=== PATIENT | female | born 1990 | race Hispanic/Latino ===

== ENCOUNTER 2017-08-05 11:03 | Emergency (ER) | payer SELFPAY ==
--- NOTE | 2017-08-05 12:43 | ER ---
Nurse's Notes [facility] Name: Marine Mitchell Age: 27 yrs Sex: Female : 1990 Arrival Date: 08/05/2017 Time: 11:07 Bed Waiting Private MD: None, None Diagnosis: Presentation: 08/05 11:17 Presenting complaint: Patient states: vomiting yesterday evening x4. epigastric and ch flank pain today. also has a sore to R upper arm for weeks, its red and open. smaller than dime sized. Transition of care: patient was not received from another setting of care. Onset of symptoms was August 04, 2017. Care prior to arrival: None. 11:17 Method Of Arrival: Ambulatory 11:17 Acuity: ADIEL 3 Triage Assessment: :18 General: Appears in no apparent distress. comfortable, Behavior is calm, cooperative, ch appropriate for age. Pain: Complains of pain in epigastric area, anterior aspect of right lateral abdomen and anterior aspect of left lateral abdomen Pain currently is 5 out of 10 on a pain scale. GI: Reports upper abdominal pain, nausea, vomiting. : No signs and/or symptoms were reported regarding the genitourinary system. 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 Flu vaccine is not up to date. - Social history:: Smoking status: Patient/guardian denies using tobacco, Patient/guardian denies using alcohol, street drugs. Vital Signs: 11:18 BP 123 / 81; Pulse 91; Resp 16; Temp 99.4(O); Pulse Ox 99% on R/A; Weight 121.56 kg; Height 5 ft. 1 in. (154.94 cm); Pain 5/10; 11:18 Body Mass Index 50.64 (121.56 kg, 154.94 cm) ED Course: 11:07 Patient arrived in ED. mr 11:08 None, None is Private Physician. mr 11:17 Triage completed. 11:18 Arm band placed on left wrist. Patient placed in waiting room. 11:56 [facility]C [facility] sn 11:56 Richard Archer MD is Attending Physician. snw 12:03 Radiology exam delayed due to lab results not completed at this time. (HCG). lc3 Administered Medications: No medications were administered Outcome: 12:42 Patient left the ED. kt1 Signatures: Lashaun Lyle, ARTEM RN Mayra Lucas FNP-C AGRONOMY SUPERVISOR-Beverly Marina mr Anuja Grant, RN RN kt1 Rajesh Palacios lc3
[2017-08-05 12:57] VITALS: BP 123/81; TEMP 99.4; O2SAT 99
== END 2017-08-05 12:42 | disposition left against medical advice (07) ==
LOC: ER 11:03
DX: Z02.9 Encounter for administrative examinations, unspecified (principal)
CPT/HCPCS: 99281

== ENCOUNTER 2017-08-29 09:53 | Emergency (ER) | payer SELFPAY ==
[2017-08-29 10:53] LABS: Bicarbonate 22 mEq/L (21-31); Glucose Level 106 mg/dL (65-120); Lipase 23 U/L (22-51); Potassium 3.6 mEq/L (3.6-5.0); Sodium Level 133 mEq/L (135-145)
[2017-08-29 10:59] LABS: ALT/SGPT 16 IU/L (10-60); AST/SGOT 20 IU/L (10-42); Albumin 3.7 g/dL (3.2-5.5); Alkaline Phosphatase 84 IU/L (42-121); Amylase Level 43 U/L (28-100); BUN Blood Urea Nitrogen 12 mg/dL (6-20); Bilirubin Direct 0.1 mg/dL (0-0.2); Bilirubin Total 0.5 mg/dL (0.3-1.2); Glomerular Filtration Rate > 90 mL/min (=/>90); Protein, Total 7.8 g/dL (6.0-8.3)
[2017-08-29 11:15] LABS: Absolute Lymphocytes (CBC) 2.4 K/uL (0.7-4.9); Absolute Monocytes 0.8 K/uL (0.1-1.3); Absolute Neutrophil 11.3 K/uL (1.8-8.0); Basophils % 0.5 % (0-1.3); Eosinophils % 0.3 % (0-4.4); Hematocrit 38.7 % (36.0-45.0); Lymphocytes % 16.3 % (15.3-44.8); MCH 23.1 pg (27.0-35.0); MCV 74.1 fL (80-100); Monocytes % 5.5 % (3.3-12.3); RBC Red Blood Cell Count 5.22 M/uL (3.86-4.86)
[2017-08-29 11:19] LABS: Urine Blood NEGATIVE (NEG); Urine Glucose NEGATIVE (NEG); Urine Protein 1+ (NEG); Urine Specific Gravity 1.025 (1.005-1.030)
--- NOTE | 2017-08-29 12:00 | RAD REPORT ---
EXAM DESCRIPTION: CT - Abdomen Pelvis W Contrast - 08/29/2017 11:41 am CLINICAL HISTORY: Abdominal pain COMPARISON: 2014 TECHNIQUE: Computed axial tomography of the abdomen pelvis was obtained. 100 cc Isovue-300 was admin istered intravenously. Oral contrast was not requested which limits evaluation of bowel. All CT scans are performed using dose optimization technique as appropriate and may include automated exposure control or mA/KV adjustment according to patient size. FINDINGS: The liver has a diminished attenuation consistent with fatty infiltration. Splenic granulomata are noted. Pancreas, adrenal and left kidney appear unremarkable. The right kidney is extremely atrophic. There is no evidence of diverticulitis. The appendix is normal. An adnexal mass is not noted. A 10 millimeter right inguinal lymph node is present. It has diminished in size when compared to the prior exam IMPRESSION: Fatty infiltration liver Extremely atrophic right kidney
--- NOTE | 2017-08-29 12:44 | EDPHYS ---
Physician Documentation [facility] Name: Marine Mitchell Age: 27 yrs Sex: Female : 1990 Arrival Date: 08/29/2017 Time: 09:54 Bed 24 Private MD: ED Physician Bruno Guardado HPI: 08/29 10:03 This 27 yrs old Female presents to ER via Ambulatory with complaints of kb Abdominal Pain. 10:03 The patient presents with abdominal pain in the epigastric area. Onset: The kb symptoms/episode began/occurred this morning. The symptoms do not radiate. Associated signs and symptoms: none. The symptoms are described as achy. Modifying factors: The symptoms are alleviated by nothing, the symptoms are aggravated by nothing. Severity of pain: At its worst the pain was mild in the emergency department the pain is unchanged. The patient has not experienced similar symptoms in the past. The patient has not recently seen a physician. 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 - Social history:: Smoking status: Patient/guardian denies using tobacco. ROS: 10:01 Constitutional: Negative for fever, chills, and weight loss, Cardiovascular: Negative kb for chest pain, palpitations, and edema, Respiratory: Negative for shortness of breath, cough, wheezing, and pleuritic chest pain, : Negative for injury, bleeding, discharge, and swelling, MS/Extremity: Negative for injury and deformity, Skin: Negative for injury, rash, and discoloration, Neuro: Negative for headache, weakness, numbness, tingling, and seizure. 10:01 Abdomen/GI: Positive for abdominal pain, Negative for nausea, vomiting, and diarrhea, constipation, abdominal cramps, abdominal distension, anorexia. Exam: 10:01 Constitutional: This is a well developed, well nourished patient who is awake, alert, kb and in no acute distress. Head/Face: Normocephalic, atraumatic. Chest/axilla: Normal chest wall appearance and motion. Nontender with no deformity. No lesions are appreciated. Cardiovascular: Regular rate and rhythm with a normal S1 and S2. No gallops, murmurs, or rubs. Normal PMI, no JVD. No pulse deficits. Respiratory: Lungs have equal breath sounds bilaterally, clear to auscultation and percussion. No rales, rhonchi or wheezes noted. No increased work of breathing, no retractions or nasal flaring. Back: No spinal tenderness. No costovertebral tenderness. Full range of motion. Skin: Warm, dry with normal turgor. Normal color with no rashes, no lesions, and no evidence of cellulitis. MS/ Extremity: Pulses equal, no cyanosis. Neurovascular intact. Full, normal range of motion. Neuro: Awake and alert, GCS 15, oriented to person, place, time, and situation. Cranial nerves II-XII grossly intact. Motor strength 5/5 in all extremities. Sensory grossly intact. Cerebellar exam normal. Normal gait. 10:01 Abdomen/GI: Inspection: obese Bowel sounds: normal, in all quadrants, Palpation: soft, mild abdominal tenderness, in the epigastric area and suprapubic area. Vital Signs: 09:57 Pulse 77; Resp 19; Temp 96.9(TE); Pulse Ox 99% on R/A; Weight 120.2 kg; Height 5 ft. 1 la1 in. (154.94 cm); 09:58 BP 130 / 79; la1 10:45 BP 128 / 70; Pulse 80; Resp 18; Pulse Ox 99% on R/A; aj1 11:55 BP 122 / 85; Pulse 68; Resp 18; Pulse Ox 99% on R/A; aj1 12:55 BP 128 / 88; Pulse 72; Resp 18; Pulse Ox 99% on R/A; aj1 09:57 Body Mass Index 50.07 (120.20 kg, 154.94 cm) la1 MDM: 09:59 Patient medically screened. kb 10:01 Data reviewed: vital signs, nurses notes. Data interpreted: Pulse oximetry: on room air kb is 99 %. Interpretation: normal. 12:01 Counseling: I had a detailed discussion with the patient and/or guardian regarding: the kb historical points, exam findings, and any diagnostic results supporting the discharge/admit diagnosis, lab results, radiology results, the need for outpatient follow up, a family practitioner, to return to the emergency department if symptoms worsen or persist or if there are any questions or concerns that arise at home. 08/29 10:00 Order name: Lipase; Complete Time: 11:01 kb 08/29 10:00 Order name: Amylase, Serum; Complete Time: 11:01 kb 08/29 10:00 Order name: Basic Metabolic Panel; Complete Time: 11:01 kb 08/29 10:00 Order name: CBC with Diff; Complete Time: 11:24 kb 08/29 10:00 Order name: Hepatic Function; Complete Time: 11:01 kb 08/29 10:41 Order name: Urine Dipstick--Ancillary (enter results); Complete Time: 11:20 ag 08/29 10:00 Order name: Urine Test (obtain specimen); Complete Time: 10:32 kb 08/29 10:00 Order name: IV Saline Lock; Complete Time: 10:32 kb 08/29 10:00 Order name: Labs collected and sent; Complete Time: 10:32 kb 08/29 10:00 Order name: Urine Dipstick-Ancillary (obtain specimen); Complete Time: 10:32 kb 08/29 10:41 Order name: Urine --Ancillary (enter results); Complete Time: 11:20 ag 08/29 10:58 Order name: Labs - recollect needed; Complete Time: 11:05 ag 08/29 11:24 Order name: CT Abd/Pelvis - W/Contrast; Complete Time: 12:01 kb 08/29 11:24 Order name: Urine Microscopic Only kb Administered Medications: No medications were administered Disposition: 15:48 Co-signature as Attending Physician, Bruno Guardado MD I agree with the assessment and perla plan of care. Disposition: 08/29/17 12:43 Discharged to Home. Impression: Generalized abdominal pain. - Condition is Stable. - Discharge Instructions: Abdominal Pain, Adult, [id number]. - Medication Reconciliation Form, Thank You Letter, Antibiotic Education, Prescription Opioid Use form. - Follow up: Emergency Department; When: As needed; Reason: Worsening of condition. Follow up: Private Physician; When: 2 - 3 days; Reason: Recheck today's complaints, Continuance of care, Re-evaluation by your physician. Signatures: Dispatcher [employer] EDRona Singh, LAURA-C LAURA-Libra Vallejo RN RN Bruno Smiley MD MD cha Attema, Lee RN RN la1 Kumar, Bella ag
--- NOTE | 2017-08-29 12:44 | ER ---
Nurse's Notes [facility] Name: Marine Mitchell Age: 27 yrs Sex: Female : 1990 Arrival Date: 08/29/2017 Time: 09:54 Bed 24 Private MD: Diagnosis: Generalized abdominal pain Presentation: 08/29 09:56 Presenting complaint: Patient states: I have been having pain abd pain since this la1 morning. Pt denies N/V/D. pt states LMP in April. Transition of care: patient was not received from another setting of care. Onset of symptoms was August 29, 2017. Care prior to arrival: None. 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 - Social history:: Smoking status: Patient/guardian denies using tobacco. Screenin:00 Abuse screen: Denies threats or abuse. Denies injuries from another. Nutritional aj1 screening: No deficits noted. Tuberculosis screening: No symptoms or risk factors identified. 10:44 Fall Risk None identified. aj1 Assessment: 10:00 General: Appears in no apparent distress. uncomfortable, Behavior is calm, cooperative, aj1 appropriate for age. Pain: Complains of pain in suprapubic area and epigastric area Pain does not radiate. Pain currently is 9 out of 10 on a pain scale. Quality of pain is described as sharp, Pain began 1 day ago. Is continuous, Alleviated by nothing. Aggravated by repositioning. Neuro: Level of Consciousness is awake, alert, obeys commands, Speech is normal, Facial symmetry appears normal. Cardiovascular: Patient's skin is warm and dry. Respiratory: Airway is patent Respiratory effort is even, unlabored, Respiratory pattern is regular, symmetrical. GI: Abdomen is non-distended, obese, Bowel sounds present X 4 quads. Abd is soft and non tender X 4 quads. Reports lower abdominal pain, upper abdominal pain, Patient currently denies diarrhea, intolerance of food, vomiting. : No signs and/or symptoms were reported regarding the genitourinary system. EENT: No signs and/or symptoms were reported regarding the EENT system. Derm: No signs and/or symptoms reported regarding the dermatologic system. Skin is pink, warm \T\ dry. normal. Musculoskeletal: No signs and/or symptoms reported regarding the musculoskeletal system. Circulation, motion, and sensation intact. 11:00 Reassessment: Patient appears in no apparent distress at this time. No changes from [facility] previously documented assessment. Patient and/or family updated on plan of care and expected duration. Pain level reassessed. Patient is alert, oriented x 3, equal unlabored respirations, skin warm/dry/pink. 12:00 Reassessment: Patient appears in no apparent distress at this time. No changes from [facility] previously documented assessment. Patient and/or family updated on plan of care and expected duration. Pain level reassessed. Patient is alert, oriented x 3, equal unlabored respirations, skin warm/dry/pink. 12:40 Reassessment: Patient states that she would like to leave now without waiting for [facility] remaining test results to return. Notified Chloé Mclaughlin NP who will discharge the patient. 12:45 Reassessment: Chloé Mclaughlin NP at bedside giving patient discharge instructions. [facility] 12:55 Reassessment: Patient appears in no apparent distress at this time. No changes from [facility] previously documented assessment. Patient and/or family updated on plan of care and expected duration. Pain level reassessed. Patient is alert, oriented x 3, equal unlabored respirations, skin warm/dry/pink. 12:58 Reassessment: Patient throws her discharge instructions into the trash prior to leaving [facility] ER. Vital Signs: 09:57 Pulse 77; Resp 19; Temp 96.9(TE); Pulse Ox 99% on R/A; Weight 120.2 kg; Height 5 ft. 1 la1 in. (154.94 cm); 09:58 BP 130 / 79; la1 10:45 BP 128 / 70; Pulse 80; Resp 18; Pulse Ox 99% on R/A; aj1 11:55 BP 122 / 85; Pulse 68; Resp 18; Pulse Ox 99% on R/A; aj1 12:55 BP 128 / 88; Pulse 72; Resp 18; Pulse Ox 99% on R/A; aj1 09:57 Body Mass Index 50.07 (120.20 kg, 154.94 cm) [facility] ED Course: 09:54 Patient arrived in ED. as 09:57 Triage completed. la1 09:58 Arm band placed on left wrist. la1 09:59 Rona Mclaughlin [facility]-C [facility] kb 09:59 Bruno Guardado MD is Attending Physician. kb 10:00 Patient has correct armband on for positive identification. Bed in low position. Call aj1 light in reach. Side rails up X 1. 10:00 No provider procedures requiring assistance completed. aj1 10:02 Libra Rubio, RN is Primary Nurse. aj1 10:20 Missed attempt(s): 22 gauge in right antecubital area. Bleeding controlled, band aid aj1 applied, catheter tip intact. 10:25 Inserted saline lock: 20 gauge in left antecubital area, using aseptic technique. Blood aj1 collected. 11:36 CT completed. Patient tolerated procedure well. Patient moved to CT via wheelchair. jg1 Patient moved back from CT. 11:41 CT Abd/Pelvis - W/Contrast In Process Unspecified. EDMS 12:56 IV discontinued, intact, bleeding controlled, No redness/swelling at site. Pressure aj1 dressing applied. Administered Medications: No medications were administered Outcome: 12:43 Discharge ordered by MD. kb 12:56 Discharged to home ambulatory. aj1 12:56 Condition: good 12:56 Discharge instructions given to patient, Instructed on discharge instructions, follow up and referral plans. Demonstrated understanding of instructions, follow-up care. 13:03 Patient left the ED. aj1 Signatures: Dispatcher [employer] EDMS Rona Mclaughlin FNP-C FNP-Libra Vallejo, RN RN aj1 Snehal Elise j Marilyn Ignacio Lee, RN RN la1
[2017-08-29 13:10] VITALS: TEMP 96.9; O2SAT 99
[2017-08-29 13:15] VITALS: BP 128/88
[2017-08-29 13:34] LABS: Urine Amorphous Sediment 2+ /HPF (NONE SEEN); Urine Bacteria 20-50 /HPF (<20); Urine Culture Reflex Order REFLEXED; Urine Mucus 1+ /HPF (NONE SEEN); Urine RBC <5 /HPF (NONE SEEN)
== END 2017-08-29 13:03 | disposition home or self-care (01) ==
LOC: ER 09:53
DX: R10.84 Generalized abdominal pain (principal)
CPT/HCPCS: 36415; 74177; 80048; 80076; 81003; 81015; 81025; 82150; 83690; 85025; 87086; 87088; 99284; Q9967

== ENCOUNTER 2018-03-24 11:38 | Emergency (ER) | payer SELFPAY ==
--- NOTE | 2018-03-24 13:21 | ER ---
Nurse's Notes [facility] Name: Marine Mitchell Age: 27 yrs Sex: Female : 1990 Arrival Date: 03/24/2018 Time: 11:40 Bed 20 Private MD: Diagnosis: Hordeolum internum right upper eyelid Presentation: 03/24 11:50 Presenting complaint: Patient states: Painful bumb to right upper eyelid since jl7 Friday. Transition of care: patient was not received from another setting of care. Onset of symptoms was March 21, 2018. Risk Assessment: Do you want to hurt yourself or someone else? Patient reports no desire to harm self or others. Initial Sepsis Screen: Does the patient meet any 2 criteria? No. Patient's initial sepsis screen is negative. Does the patient have a suspected source of infection? No. Patient's initial sepsis screen is negative. Care prior to arrival: None. 11:50 Method Of Arrival: Ambulatory [facility] 11:50 Acuity: ADIEL 4 jl7 Triage Assessment: 11:51 General: Appears in no apparent distress. uncomfortable, Behavior is calm, cooperative, jl7 appropriate for age. Pain: Complains of pain in right upper eyelid Pain currently is 10 out of 10 on a pain scale. 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 - Social history:: Smoking status: Patient uses tobacco products, denies chronic smoking, but will smoke occasionally. - Ebola Screening: : No symptoms or risks identified at this time. Screenin:20 Abuse screen: Denies threats or abuse. Denies injuries from another. Nutritional sg screening: No deficits noted. Tuberculosis screening: No symptoms or risk factors identified. Never had TB. Fall Risk None identified. Assessment: 13:10 General: Appears in no apparent distress. comfortable, well groomed, well developed, sg well nourished, Behavior is calm, cooperative, appropriate for age. Pain: Complains of pain in right upper eyelid Quality of pain is described as "scratching". Neuro: Level of Consciousness is awake, alert, obeys commands, Oriented to person, place, time, Radar Tester are equal bilaterally Moves all extremities. Full function Speech is normal, Facial symmetry appears normal. Cardiovascular: Capillary refill is brisk in bilateral fingers Patient's skin is warm and dry. Respiratory: Airway is patent Respiratory effort is even, unlabored, Respiratory pattern is regular, symmetrical, Breath sounds are clear. GI: Abdomen is flat, non-distended. : No deficits noted. EENT: No deficits noted. Derm: Skin is pink, warm \\T\\ dry. Musculoskeletal: No deficits noted. Vital Signs: 11:51 BP 119 / 79; Pulse 87; Resp 16; Temp 98.9; Pulse Ox 100% ; Weight 120.2 kg; Height 5 jl7 ft. 1 in. (154.94 cm); Pain 10/10; 11:51 Body Mass Index 50.07 (120.20 kg, 154.94 cm) jl7 ED Course: 11:40 Patient arrived in ED. as 11:51 Triage completed. jl7 11:51 Arm band placed on right wrist. Patient placed in waiting room, Patient notified of jl7 wait time. 12:55 Bruno White PA is PHCP. cp 12:55 Bruno Guardado MD is Attending Physician. cp 13:10 Patient has correct armband on for positive identification. Bed in low position. Pulse sg ox on. NIBP on. 13:15 No provider procedures requiring assistance completed. Patient did not have IV access sg during this emergency room visit. 13:20 Jc Win MD is Referral Physician. cp 13:28 Brown Junior, RN is Primary Nurse. sg Administered Medications: No medications were administered Outcome: 13:21 Discharge ordered by . cp 13:25 Discharged to home ambulatory, with family. sg 13:25 Condition: stable 13:25 Discharge instructions given to patient, Instructed on discharge instructions, follow up and referral plans. medication usage, safety practices, Demonstrated understanding of instructions, follow-up care, medications, Prescriptions given X 1. 13:29 Patient left the ED. sg Signatures: Brown Junior, RN RN Marilyn Anthony as Bruon White PA PA Karthikeyan Navarro RN RN jl7
--- NOTE | 2018-03-24 13:22 | EDPHYS ---
Physician Documentation [facility] Name: Marine Mitchell Age: 27 yrs Sex: Female : 1990 Arrival Date: 03/24/2018 Time: 11:40 Bed 20 Private MD: ED Physician Bruno Guardado HPI: 03/24 13:15 This 27 yrs old Female presents to ER via Ambulatory with complaints of Eye cp Problem. 13:15 The patient is experiencing swelling, right upper eyelid. Onset: The symptoms/episode cp began/occurred 1 week(s) ago. Duration: the symptoms are continuous. 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 - Social history:: Smoking status: Patient uses tobacco products, denies chronic smoking, but will smoke occasionally. - Ebola Screening: : No symptoms or risks identified at this time. ROS: 13:18 Constitutional: Negative for body aches, chills, fever, poor PO intake. cp 13:18 ENT: Negative for injury, pain, and discharge. cp 13:18 Eyes: Positive for swelling, of the right upper eyelid, Negative for discharge, redness. 13:18 Cardiovascular: Negative for chest pain. 13:18 Respiratory: Negative for cough, shortness of breath, wheezing. 13:18 Abdomen/GI: Negative for abdominal pain, vomiting, diarrhea, constipation. 13:18 Skin: Negative for cellulitis, rash. 13:18 All other systems are negative. Exam: 13:20 Constitutional: The patient appears in no acute distress, alert, awake, well developed, cp well nourished, obese. 13:20 Head/Face: Normocephalic, atraumatic. cp 13:20 Eyes: Pupils: equal, round, and reactive to light and accomodation, Extraocular movements: intact throughout, Sclera: no appreciated abnormality, Lids and lashes: stye, inner right upper eyelid. 13:20 ENT: External ear(s): are unremarkable, Ear canal(s): are normal, clear, TM's: dullness, bilaterally, Nose: is normal, Mouth: is normal, Posterior pharynx: is normal, airway is patent, no erythema, no exudate. 13:20 Neck: ROM/movement: is normal, is supple, without pain, no range of motions limitations, no nuchal rigidity. 13:20 Chest/axilla: Inspection: normal, Palpation: is normal, no crepitus, no tenderness. 13:20 Cardiovascular: Rate: normal, Rhythm: regular. 13:20 Respiratory: the patient does not display signs of respiratory distress, Respirations: normal, no use of accessory muscles, no retractions, no splinting, no tachypnea. 13:20 Skin: cellulitis, is not appreciated, no rash present. Vital Signs: 11:51 BP 119 / 79; Pulse 87; Resp 16; Temp 98.9; Pulse Ox 100% ; Weight 120.2 kg; Height 5 jl7 ft. 1 in. (154.94 cm); Pain 10/10; 11:51 Body Mass Index 50.07 (120.20 kg, 154.94 cm) jl7 MDM: 12:55 Patient medically screened. cp 13:20 Data reviewed: vital signs, nurses notes, and as a result, I will discharge patient. cp Administered Medications: No medications were administered Disposition: 03/25 08:55 Co-signature as Attending Physician, Bruno Guardado MD I agree with the assessment and [facility] plan of care. Disposition: 03/24/18 13:21 Discharged to Home. Impression: Hordeolum internum right upper eyelid. - Condition is Stable. - Discharge Instructions: Stye. - Prescriptions for Keflex 500 mg Oral Capsule - take 1 capsule by ORAL route every 6 hours for 10 days; 40 capsule. - Work release form, Medication Reconciliation Form, Thank You Letter, Antibiotic Education, Prescription Opioid Use form. - Follow up: Jc Win MD; When: 1 week; Reason: no improvement. - Problem is new. - Symptoms are unchanged. Signatures: Brown Junior RN RN sg Anderson, Corey, MD MD cha Page, Corey, PA PA cp Leal, Jahala, RN RN jl7 Corrections: (The following items were deleted from the chart) 03/24 13:29 13:21 03/24/2018 13:21 Discharged to Home. Impression: Hordeolum internum right upper sg eyelid. Condition is Stable. Forms are Medication Reconciliation Form, Thank You Letter, Antibiotic Education, Prescription Opioid Use. Follow up: Jc Win; When: 1 week; Reason: no improvement. Problem is new. Symptoms are unchanged. cp
[2018-03-24 13:57] VITALS: BP 119/79; TEMP 98.9; O2SAT 100
== END 2018-03-24 13:29 | disposition home or self-care (01) ==
LOC: ER 11:38
DX: H00.021 Hordeolum internum right upper eyelid (principal)
CPT/HCPCS: 99283

== ENCOUNTER 2018-04-28 19:06 | Emergency (ER) | payer SELFPAY ==
[2018-04-28] MEDS ORDERED: ACETAMINOPHEN 325 MG TABLET ONE (20:01)
[2018-04-28] MEDS ORDERED: IBUPROFEN 400 MG TAB ONE (20:01)
[2018-04-28] MEDS ORDERED: ONDANSETRON 4 MG (ODT) TAB ONE (20:02)
--- NOTE | 2018-04-28 20:31 | ER ---
Nurse's Notes [facility] Name: Marine Mitchell Age: 27 yrs Sex: Female : 1990 Arrival Date: 04/28/2018 Time: 19:07 Bed 20 Private MD: Diagnosis: Head injury;Scalp contusion Presentation: 04/28 19:21 Presenting complaint: Patient states: ice door fell hitting pt in left side of head. pt ak1 denies LOC, denies N/V. Transition of care: patient was not received from another setting of care. Mechanism of Injury: resulted from ice door fell hitting pt;. Risk considerations:. Onset of symptoms was April 28, 2018. Risk Assessment: Do you want to hurt yourself or someone else? Patient reports no desire to harm self or others. Initial Sepsis Screen: Does the patient meet any 2 criteria? No. Patient's initial sepsis screen is negative. Does the patient have a suspected source of infection? No. Patient's initial sepsis screen is negative. Care prior to arrival: None. 19:21 Method Of Arrival: Ambulatory ak1 19:21 Acuity: ADIEL 4 ak1 Triage Assessment: 19:23 General: Appears in no apparent distress. Neuro: Level of Consciousness is awake, ak1 alert, obeys commands, Oriented to person, place, time, situation, Foreign Correspondent are equal bilaterally Moves all extremities. Gait is steady, Speech is normal, Facial symmetry appears normal. 19:58 Neuro: Reports headache. 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 - Social history:: Smoking status: unknown. - Ebola Screening: : No symptoms or risks identified at this time. Screenin:55 Abuse screen: Denies threats or abuse. Denies injuries from another. Nutritional ls4 screening: No deficits noted. Tuberculosis screening: No symptoms or risk factors identified. Fall Risk None identified. Assessment: 19:59 General: Appears in no apparent distress. Behavior is calm, cooperative, Smells of ls4 Reports. 19:59 Pain: Complains of pain in top of head Pain currently is 5 out of 10 on a pain scale. ls4 Quality of pain is described as aching. Neuro: No deficits noted. Cardiovascular: No deficits noted. Respiratory: No deficits noted. GI: No deficits noted. : No deficits noted. EENT: No deficits noted. Musculoskeletal: No deficits noted. Injury Description: NO INJURY VISUALIZED. PT STATES ICE DOOR CLOSED ON HER HEAD. Vital Signs: 19:23 BP 129 / 93; Pulse 87; Resp 18; Temp 98; Pulse Ox 98% on R/A; Weight 106.59 kg (R); ak1 Height 5 ft. 1 in. (154.94 cm) (R); Pain 10/10; 20:52 BP 122 / 78; Pulse 86; Resp 16; Temp 98(O); Pulse Ox 98% on R/A; Pain 0/10; ls4 19:23 Body Mass Index 44.40 (106.59 kg, 154.94 cm) ak1 Suzy Coma Score: 19:21 Eye Response: spontaneous(4). Verbal Response: oriented(5). Motor Response: obeys ak1 commands(6). Total: 15. 20:18 Eye Response: spontaneous(4). Verbal Response: oriented(5). Motor Response: obeys wa commands(6). Total: 15. ED Course: 19:07 Patient arrived in ED. ds1 19:22 Triage completed. ak1 19:23 Arm band placed on Patient placed in an exam room, on a stretcher, Patient notified of ak1 wait time. 19:27 Brandan Vela MD is Attending Physician. wa 19:35 Dodie Ochoa, RN is Primary Nurse. ls4 19:58 Patient has correct armband on for positive identification. Bed in low position. Call ls4 light in reach. Side rails up X2. 20:55 No provider procedures requiring assistance completed. Patient did not have IV access ls4 during this emergency room visit. Administered Medications: 19:56 Drug: Motrin 400 mg Route: PO; ls4 20:21 Follow up: Response: No adverse reaction; Marked relief of symptoms ls4 19:56 Drug: Zofran 4 mg Route: PO; ls4 20:20 Follow up: Response: No adverse reaction; Marked relief of symptoms ls4 19:57 Drug: Tylenol 1000 mg Route: PO; ls4 20:21 Follow up: Response: No adverse reaction; Marked relief of symptoms ls4 Outcome: 20:31 Discharge ordered by . polo 20:56 Discharged to home ambulatory, with friend. ls4 20:56 Condition: good 20:56 Discharge instructions given to patient, Instructed on discharge instructions, follow up and referral plans. medication usage, Demonstrated understanding of instructions, follow-up care, medications, Prescriptions given X 1. 20:57 Patient left the ED. ls4 Signatures: Arabella Covarrubias ds1 Marine Irizarry RN RN ak1 Brandan Vela MD MD wa Stewart, Lisa, RN RN ls4
--- NOTE | 2018-04-28 20:31 | EDPHYS ---
Physician Documentation [facility] Name: Marine Mitchell Age: 27 yrs Sex: Female : 1990 Arrival Date: 04/28/2018 Time: 19:07 Bed 20 Private MD: ED Physician Brandan Vela HPI: 04/28 20:18 This 27 yrs old Female presents to ER via Ambulatory with complaints of Head wa Injury-Adult. 20:18 The patient or guardian reports injury, lid of ice machine hit her scalp at work. no wa LOC. no dizziness or vomiting. states began developing a LEWIS 2 -3 hours later and wants to get checked. no h/o of blood dyscrasias or anticoag therapy. The complaints affect the top of head. Context of injury: The problem was sustained at work, resulted from a direct blow, from lid of ice machine. Onset: The symptoms/episode began/occurred 6 hour(s) ago. Associated signs and symptoms: Loss of consciousness: This patient did not experience any loss of consciousness. Pertinent positives: headache, Pertinent negatives: dazed, vomiting. Severity of symptoms: At their worst the symptoms were moderate, in the emergency department the symptoms are unchanged. The patient has not experienced similar symptoms in the past. The patient has not recently seen a physician. 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 - Social history:: Smoking status: unknown. - Ebola Screening: : No symptoms or risks identified at this time. ROS: 20:21 Constitutional: Negative for fever, chills, and weight loss, Eyes: Negative for injury, wa pain, redness, and discharge, ENT: Negative for injury, pain, and discharge, Neck: Negative for injury, pain, and swelling, Cardiovascular: Negative for chest pain, palpitations, and edema, Respiratory: Negative for shortness of breath, cough, wheezing, and pleuritic chest pain, Abdomen/GI: Negative for abdominal pain, nausea, vomiting, diarrhea, and constipation, Back: Negative for injury and pain, : Negative for injury, bleeding, discharge, and swelling, MS/Extremity: Negative for injury and deformity, Skin: Negative for injury, rash, and discoloration. 20:21 Neuro: Positive for headache, Negative for altered mental status, dizziness, gait disturbance. 20:21 All other systems are negative. Exam: 20:21 Constitutional: This is a well developed, well nourished patient who is awake, alert, wa and in no acute distress. Eyes: Pupils equal round and reactive to light, extra-ocular motions intact. Lids and lashes normal. Conjunctiva and sclera are non-icteric and not injected. Cornea within normal limits. Periorbital areas with no swelling, redness, or edema. ENT: Nares patent. No nasal discharge, no septal abnormalities noted. Tympanic membranes are normal and external auditory canals are clear. Oropharynx with no redness, swelling, or masses, exudates, or evidence of obstruction, uvula midline. Mucous membranes moist. Neck: Trachea midline, no thyromegaly or masses palpated, and no cervical lymphadenopathy. Supple, full range of motion without nuchal rigidity, or vertebral point tenderness. No Meningismus. Chest/axilla: Normal chest wall appearance and motion. Nontender with no deformity. No lesions are appreciated. Cardiovascular: Regular rate and rhythm with a normal S1 and S2. No gallops, murmurs, or rubs. Normal PMI, no JVD. No pulse deficits. Respiratory: Lungs have equal breath sounds bilaterally, clear to auscultation and percussion. No rales, rhonchi or wheezes noted. No increased work of breathing, no retractions or nasal flaring. Abdomen/GI: Soft, non-tender, with normal bowel sounds. No distension or tympany. No guarding or rebound. No evidence of tenderness throughout. Back: No spinal tenderness. No costovertebral tenderness. Full range of motion. Skin: Warm, dry with normal turgor. Normal color with no rashes, no lesions, and no evidence of cellulitis. MS/ Extremity: Pulses equal, no cyanosis. Neurovascular intact. Full, normal range of motion. Psych: Awake, alert, with orientation to person, place and time. Behavior, mood, and affect are within normal limits. 20:21 Head/face: Noted is tenderness, that is moderate, of the top of head. 20:21 Neuro: Orientation: is normal, Mentation: is normal, Memory: is normal, Cranial nerves: grossly normal, Motor: is normal, Gait: is steady. Vital Signs: 19:23 BP 129 / 93; Pulse 87; Resp 18; Temp 98; Pulse Ox 98% on R/A; Weight 106.59 kg (R); ak1 Height 5 ft. 1 in. (154.94 cm) (R); Pain 10/10; 20:52 BP 122 / 78; Pulse 86; Resp 16; Temp 98(O); Pulse Ox 98% on R/A; Pain 0/10; ls4 19:23 Body Mass Index 44.40 (106.59 kg, 154.94 cm) ak1 [place] Coma Score: 19:21 Eye Response: spontaneous(4). Verbal Response: oriented(5). Motor Response: obeys ak1 commands(6). Total: 15. 20:18 Eye Response: spontaneous(4). Verbal Response: oriented(5). Motor Response: obeys wa commands(6). Total: 15. MDM: 19:27 Patient medically screened. wa 20:22 Differential diagnosis: head injury. no worrisome factors to warrant head CT. will pain wa control and give close f/u. Data reviewed: vital signs, nurses notes. Response to treatment: the patient's symptoms have markedly improved after treatment. Administered Medications: 19:56 Drug: Motrin 400 mg Route: PO; ls4 20:21 Follow up: Response: No adverse reaction; Marked relief of symptoms ls4 19:56 Drug: Zofran 4 mg Route: PO; ls4 20:20 Follow up: Response: No adverse reaction; Marked relief of symptoms ls4 19:57 Drug: Tylenol 1000 mg Route: PO; ls4 20:21 Follow up: Response: No adverse reaction; Marked relief of symptoms ls4 Disposition: 04/28/18 20:31 Discharged to Home. Impression: Head injury, Scalp contusion. - Condition is Stable. - Discharge Instructions: Head Injury, Adult, [id number]. - Prescriptions for Ibuprofen 600 mg Oral Tablet - take 1 tablet by ORAL route every 6 hours As needed take with food; 30 tablet. - Medication Reconciliation Form, Thank You Letter, Antibiotic Education, Prescription Opioid Use form. - Follow up: Private Physician; When: 2 - 3 days. - Problem is new. - Symptoms have improved. - Notes: see your doctor within 2-3 days if symptoms persist and do not improve Signatures: Marine Irizarry, RN RN ak1 Brandan Vela MD MD wa Dodie Ochoa, ARTEM RN ls4 Corrections: (The following items were deleted from the chart) 20:57 20:31 04/28/2018 20:31 Discharged to Home. Impression: Head injury; Scalp contusion. ls4 Condition is Stable. Forms are Medication Reconciliation Form, Thank You Letter, Antibiotic Education, Prescription Opioid Use. Follow up: Private Physician; When: 2 - 3 days. Problem is new. Symptoms have improved. wa
[2018-04-28 21:02] VITALS: TEMP 98; O2SAT 98
[2018-04-28 21:03] VITALS: BP 122/78
== END 2018-04-28 20:57 | disposition home or self-care (01) ==
LOC: ER 19:06
DX: S09.90XA Unspecified injury of head, initial encounter (principal); S00.03XA Contusion of scalp, initial encounter; W22.8XXA Striking against or struck by other objects, initial encounter; Y99.0 Civilian activity done for income or pay
CPT/HCPCS: 99283

== ENCOUNTER 2018-06-04 15:05 | Emergency (ER) | payer SELFPAY ==
--- NOTE | 2018-06-04 16:49 | EDPHYS ---
Physician Documentation [facility] Name: Marine Mitchell Age: 27 yrs Sex: Female : 1990 Arrival Date: 06/04/2018 Time: 15:08 Bed 9 Private MD: ED Physician Bruno Guardado HPI: 06/04 15:38 This 27 yrs old Female presents to ER via Ambulatory with complaints of Sore pm1 Throat. 15:38 The patient presents with sore throat. The patient describes throat pain as constant, pm1 raw, scratchy. Onset: The symptoms/episode began/occurred 3 day(s) ago. Severity of symptoms: in the emergency department the symptoms are unchanged. Modifying factors: The symptoms are alleviated by nothing, the symptoms are aggravated by foods, swallowing, Patient's oral intake status: good unaware of sick contact. Associated signs and symptoms: Pertinent positives: cough, flu-like symptoms, Pertinent negatives diarrhea, earache, fever, headache, shortness of breath, vomiting. The patient has not experienced similar symptoms in the past. The patient has not recently seen a physician. 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 - Social history:: Smoking status: unknown. - Ebola Screening: : Patient negative for fever greater than or equal to 101.5 degrees Fahrenheit, and additional compatible Ebola Virus Disease symptoms Patient denies exposure to infectious person Patient denies travel to an Ebola-affected area in the 21 days before illness onset No symptoms or risks identified at this time. ROS: 15:38 Constitutional: Negative for fever, chills, and weight loss, Eyes: Negative for injury, pm1 pain, redness, and discharge, Neck: Negative for injury, pain, and swelling, Cardiovascular: Negative for chest pain, palpitations, and edema, Abdomen/GI: Negative for abdominal pain, nausea, vomiting, diarrhea, and constipation, Back: Negative for injury and pain, : Negative for injury, bleeding, discharge, and swelling, MS/Extremity: Negative for injury and deformity, Skin: Negative for injury, rash, and discoloration. 15:38 Neuro: Negative for headache, weakness, numbness, tingling, and seizure. 15:38 ENT: Positive for sore throat, Negative for drainage from ear(s), ear pain, rhinorrhea, sinus congestion, sinus pain, difficulty swallowing, difficulty handling secretions, hoarseness. 15:38 Respiratory: Positive for cough, Negative for shortness of breath, sputum production, wheezing. Exam: 15:38 Constitutional: This is a well developed, well nourished patient who is awake, alert, pm1 and in no acute distress. Head/Face: Normocephalic, atraumatic. Eyes: Pupils equal round and reactive to light, extra-ocular motions intact. Lids and lashes normal. Conjunctiva and sclera are non-icteric and not injected. Cornea within normal limits. Periorbital areas with no swelling, redness, or edema. ENT: Nares patent. No nasal discharge, no septal abnormalities noted. Tympanic membranes are normal and external auditory canals are clear. Oropharynx with no redness, swelling, or masses, exudates, or evidence of obstruction, uvula midline. Mucous membranes moist. Neck: Trachea midline, no thyromegaly or masses palpated, and no cervical lymphadenopathy. Supple, full range of motion without nuchal rigidity, or vertebral point tenderness. No Meningismus. Chest/axilla: Normal chest wall appearance and motion. Nontender with no deformity. No lesions are appreciated. Cardiovascular: Regular rate and rhythm with a normal S1 and S2. No gallops, murmurs, or rubs. Normal PMI, no JVD. No pulse deficits. Respiratory: Lungs have equal breath sounds bilaterally, clear to auscultation and percussion. No rales, rhonchi or wheezes noted. No increased work of breathing, no retractions or nasal flaring. Abdomen/GI: Soft, non-tender, with normal bowel sounds. No distension or tympany. No guarding or rebound. No evidence of tenderness throughout. Back: No spinal tenderness. No costovertebral tenderness. Full range of motion. Skin: Warm, dry with normal turgor. Normal color with no rashes, no lesions, and no evidence of cellulitis. MS/ Extremity: Pulses equal, no cyanosis. Neurovascular intact. Full, normal range of motion. 15:38 Neuro: Orientation: is normal, Motor: is normal, Sensation: is normal, no obvious gross deficits, Gait: is steady, at a normal pace, without difficulty. Vital Signs: 15:32 Pulse 87; Resp 17; Temp 97; Pulse Ox 96% on R/A; Weight 120.2 kg; Height 5 ft. 1 in. sg (154.94 cm); Pain 7/10; 15:33 BP 144 / 80; sg 15:32 Body Mass Index 50.07 (120.20 kg, 154.94 cm) MDM: 15:35 Patient medically screened. pm1 16:48 Data reviewed: vital signs. Data interpreted: Pulse oximetry: on room air is 96 %. pm1 Interpretation: normal. Counseling: I had a detailed discussion with the patient and/or guardian regarding: the historical points, exam findings, and any diagnostic results supporting the discharge/admit diagnosis, lab results, the need for outpatient follow up, to return to the emergency department if symptoms worsen or persist or if there are any questions or concerns that arise at home. 06/04 15:38 Order name: Flu; Complete Time: 16:48 pm1 06/04 15:38 Order name: Strep; Complete Time: 16:48 pm1 06/04 16:24 Order name: Throat Culture EDMS Administered Medications: No medications were administered Disposition: 06/05 06:59 Co-signature as Attending Physician, Bruno Guardado MD I agree with the assessment and perla plan of care. Disposition: 06/04/18 16:48 Discharged to Home. Impression: Acute pharyngitis. - Condition is Stable. - Discharge Instructions: Antibiotic Resistance, Pharyngitis. - Medication Reconciliation Form, Thank You Letter, Antibiotic Education form. - Follow up: Emergency Department; When: As needed; Reason: Worsening of condition. Follow up: Private Physician; When: 2 - 3 days; Reason: Recheck today's complaints, Continuance of care, Re-evaluation by your physician. - Problem is new. - Symptoms have improved. Signatures: Dispatcher [employer] EDMS Brown Junior RN RN sg Anderson, Corey, MD MD cha Williams, Irene, RN RN iw Marinas, Patrick, WAYLON COSMETICS PRESSER pm1 Corrections: (The following items were deleted from the chart) 06/04 17:09 16:48 06/04/2018 16:48 Discharged to Home. Impression: Acute pharyngitis. Condition is iw Stable. Forms are Medication Reconciliation Form, Thank You Letter, Antibiotic Education, Prescription Opioid Use. Follow up: Emergency Department; When: As needed; Reason: Worsening of condition. Follow up: Private Physician; When: 2 - 3 days; Reason: Recheck today's complaints, Continuance of care, Re-evaluation by your physician. Problem is new. Symptoms have improved. pm1
--- NOTE | 2018-06-04 16:49 | ER ---
Nurse's Notes [facility] Name: Marine Mitchell Age: 27 yrs Sex: Female : 1990 Arrival Date: 06/04/2018 Time: 15:08 Bed 9 Private MD: Diagnosis: Acute pharyngitis Presentation: 06/04 15:11 Presenting complaint: Presenting complaint: Patient states: reports having sore throat sg for about 2-3 days, has had strep throat and painful swallowing, reports fever off and on for several days as well. 15:11 Acuity: ADIEL 4 sg 15:31 Transition of care: patient was not received from another setting of care. Onset of sg symptoms was June 04, 2018. Risk Assessment: Do you want to hurt yourself or someone else? Patient reports no desire to harm self or others. Initial Sepsis Screen: Does the patient meet any 2 criteria? No. Patient's initial sepsis screen is negative. Does the patient have a suspected source of infection? No. Patient's initial sepsis screen is negative. Care prior to arrival: None. 15:31 Method Of Arrival: Ambulatory sg Triage Assessment: 17:08 General: Appears in no apparent distress. Behavior is calm, cooperative. 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 - Social history:: Smoking status: unknown. - Ebola Screening: : Patient negative for fever greater than or equal to 101.5 degrees Fahrenheit, and additional compatible Ebola Virus Disease symptoms Patient denies exposure to infectious person Patient denies travel to an Ebola-affected area in the 21 days before illness onset No symptoms or risks identified at this time. Screenin:08 Abuse screen: Denies threats or abuse. Denies injuries from another. Nutritional iw screening: No deficits noted. Tuberculosis screening: No symptoms or risk factors identified. Fall Risk None identified. Assessment: 18:30 General: Appears in no apparent distress. comfortable, Behavior is calm, cooperative. iw Pain: Complains of pain in throat. Neuro: Level of Consciousness is awake, alert, obeys commands, Moves all extremities. Full function. Respiratory: Airway is patent Respiratory effort is even, unlabored, Breath sounds are clear bilaterally. EENT: Throat is reddened bilaterally with gag reflex present. Musculoskeletal: Range of motion: intact in all extremities. Vital Signs: 15:32 Pulse 87; Resp 17; Temp 97; Pulse Ox 96% on R/A; Weight 120.2 kg; Height 5 ft. 1 in. sg (154.94 cm); Pain 7/10; 15:33 BP 144 / 80; sg 15:32 Body Mass Index 50.07 (120.20 kg, 154.94 cm) ED Course: 15:08 Patient arrived in ED. mr 15:11 Triage completed. sg 15:11 Arm band placed on. sg 15:33 Froilan Jaime NP is PHCP. pm1 15:33 Bruno Guardado MD is Attending Physician. pm1 15:47 Buffy Moyer, RN is Primary Nurse. iw 16:00 Flu and/or RSV swab sent to lab. Strep swab sent to lab. jp3 16:10 Strep Sent. jp3 16:10 Flu Sent. jp3 17:08 No provider procedures requiring assistance completed. Patient did not have IV access iw during this emergency room visit. 18:00 Patient has correct armband on for positive identification. iw Administered Medications: No medications were administered Outcome: 16:48 Discharge ordered by MD. pm1 17:08 Discharged to home ambulatory. iw 17:08 Condition: good 17:08 Discharge instructions given to patient, Instructed on discharge instructions, follow up and referral plans. Demonstrated understanding of instructions, follow-up care. 17:09 Patient left the ED. iw Signatures: Brown Junior RN RN MotleyMyrna mr Buffy Moyer RN RN Froilan Jaime NP LINE PATROLMAN pm1 Clarence Michael jp3 Corrections: (The following items were deleted from the chart) 15:32 15:11 Presenting complaint: [facility] er
[2018-06-04 17:24] VITALS: TEMP 97; O2SAT 96
[2018-06-04 17:25] VITALS: BP 144/80
== END 2018-06-04 17:09 | disposition home or self-care (01) ==
LOC: ER 15:05
DX: J02.9 Acute pharyngitis, unspecified (principal)
CPT/HCPCS: 87070; 87081; 87804; 99283

== ENCOUNTER 2018-09-27 12:16 | Emergency (ER) | payer SELFPAY ==
--- NOTE | 2018-09-27 13:28 | EDPHYS ---
Physician Documentation [facility] Name: Marine Mitchell Age: 28 yrs Sex: Female : 1990 Arrival Date: 09/27/2018 Time: 12:19 Bed 25 Private MD: ED Physician Bruno Guardado HPI: 09/27 13:11 This 28 yrs old Female presents to ER via Ambulatory with complaints of Eye jmm Injury, Rash. 13:11 The patient is experiencing swelling. Onset: The symptoms/episode began/occurred jmm gradually, yesterday. Associated signs and symptoms: Pertinent negatives: fever, headache. This is a 28 year old female with a history of epilepsy that presents to the ED with complaints of left eyelid swelling and rash to her left arm and left lower leg. Patient denies fever. Patient states she went for a walk outside yesterday. Denies known injury. . 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 - Social history:: Smoking status: Patient/guardian denies using tobacco. - Ebola Screening: : Patient denies travel to an Ebola-affected area in the 21 days before illness onset. ROS: 13:11 Constitutional: Negative for fever, chills, and weight loss. jmm 13:11 Eyes: Positive for swelling. 13:11 Skin: Positive for rash. 13:11 All other systems are negative. Exam: 13:11 Constitutional: This is a well developed, well nourished patient who is awake, alert, jmm and in no acute distress. 13:11 Head/Face: atraumatic. Eyes: EOMI, no conjunctival erythema appreciated ENT: Moist Mucus Membranes Neck: Trachea midline, Supple Chest/axilla: Normal chest wall appearance and motion. Cardiovascular: Regular rate and rhythm. No edema appreciated Respiratory: Normal respirations, no respiratory distress appreciated Abdomen/GI: Non distended, soft 13:11 Neuro: Awake and alert, normal gait Psych: Behavior is normal, Mood is normal, Patient is cooperative and pleasant 13:11 Eyes: Lids and lashes: stye, on the left lid. 13:11 Skin: small erythematous lesions noted to the left forearm and left lower leg which appear consistent with insect bites. no surrounding erythema or induration appreciated. Vital Signs: 12:38 BP 116 / 83; Pulse 61; Resp 18; Temp 98.0; Pulse Ox 98% on R/A; Height 5 ft. 1 in. aj1 (154.94 cm) (R); 13:35 BP 111 / 64; Pulse 60; Resp 16; Pulse Ox 100% on R/A; ae3 12:38 Patient states that she does not know how much she weighs aj1 MDM: 13:11 Patient medically screened. perla 13:25 Data reviewed: vital signs, nurses notes. Counseling: I had a detailed discussion with sharonda the patient and/or guardian regarding: the historical points, exam findings, and any diagnostic results supporting the discharge/admit diagnosis, the need for outpatient follow up, to return to the emergency department if symptoms worsen or persist or if there are any questions or concerns that arise at home. ED course: Patient is alert and non toxic in appearance in the ED. PE exam findings consistent with hordeolum and insect bites. Patient given wound infection return precautions. Patient otherwise advised to follow up with pcp for reevaluation. Patient understood and agrees with the plan of care. . Administered Medications: No medications were administered Disposition: 09/28 06:47 Co-signature as Attending Physician, Bruno Guardado MD I agree with the assessment and [facility] plan of care. Disposition: 09/27/18 13:27 Discharged to Home. Impression: Insect Bite, Hordeolum. - Condition is Stable. - Discharge Instructions: Insect Bite, Stye. - Prescriptions for Elimite 5 % Topical Cream - apply 1 application by TOPICAL route one time Wash after 12 hours.; 60 gram. Erythromycin 5 mg/gram (0.5 %) Ophthalmic Ointment - apply 1 centimeter by OPHTHALMIC route 2-3 times daily for 7 days; 1 tube. - Medication Reconciliation Form, Thank You Letter, Antibiotic Education, Prescription Opioid Use, Work release form form. - Follow up: Private Physician; When: 2 - 3 days; Reason: Recheck today's complaints, Continuance of care, Re-evaluation by your physician. Signatures: Libra Rubio RN RN Bruno Smiley MD MD cha Mickail, Joel, PA PA jmm Elliot, Andie ae3 Corrections: (The following items were deleted from the chart) 09/27 13:48 13:27 09/27/2018 13:27 Discharged to Home. Impression: Insect Bite; Hordeolum. ae3 Condition is Stable. Forms are Medication Reconciliation Form, Thank You Letter, Antibiotic Education, Prescription Opioid Use. Follow up: Private Physician; When: 2 - 3 days; Reason: Recheck today's complaints, Continuance of care, Re-evaluation by your physician. sharonda
--- NOTE | 2018-09-27 13:28 | ER ---
Nurse's Notes [facility] Name: Marine Mitchell Age: 28 yrs Sex: Female : 1990 Arrival Date: 09/27/2018 Time: 12:19 Bed 25 Private MD: Diagnosis: Insect Bite;Hordeolum Presentation: 09/27 12:36 Presenting complaint: Patient states: swelling to left eyelid that started yesterday. aj1 Patient reports that today she noticed some red bumps on her arms and legs. Reports that the red spots are itchy. Transition of care: patient was not received from another setting of care. 12:36 Method Of Arrival: Ambulatory aj1 12:37 Onset of symptoms was September 26, 2018. Risk Assessment: Do you want to hurt yourself or aj1 someone else? Patient reports no desire to harm self or others. Initial Sepsis Screen: Does the patient meet any 2 criteria? No. Patient's initial sepsis screen is negative. Does the patient have a suspected source of infection? No. Patient's initial sepsis screen is negative. Care prior to arrival: None. 12:37 Acuity: ADIEL 4 aj1 Triage Assessment: 12:38 General: Appears in no apparent distress. comfortable, Behavior is calm. Pain: aj1 Complains of pain in left eye Pain currently is 4 out of 10 on a pain scale. Neuro: Level of Consciousness is awake, alert, obeys commands. Cardiovascular: Patient's skin is warm and dry. Respiratory: Airway is patent Respiratory effort is even, unlabored, Respiratory pattern is regular, symmetrical. 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 - Social history:: Smoking status: Patient/guardian denies using tobacco. - Ebola Screening: : Patient denies travel to an Ebola-affected area in the 21 days before illness onset. Screenin:14 Abuse screen: Denies threats or abuse. Nutritional screening: No deficits noted. la1 Tuberculosis screening: No symptoms or risk factors identified. Fall Risk None identified. Assessment: 13:13 Reassessment: Patient is alert, oriented x 3, equal unlabored respirations, skin la1 warm/dry/pink. General: Appears in no apparent distress. Behavior is calm, cooperative. EENT: Lid(s) w/ stye noted left upper eyelid. Derm: Rash noted that is macular, papular, red, on left arm, right leg and left leg. Vital Signs: 12:38 BP 116 / 83; Pulse 61; Resp 18; Temp 98.0; Pulse Ox 98% on R/A; Height 5 ft. 1 in. aj1 (154.94 cm) (R); 13:35 BP 111 / 64; Pulse 60; Resp 16; Pulse Ox 100% on R/A; ae3 12:38 Patient states that she does not know how much she weighs aj1 ED Course: 12:19 Patient arrived in ED. ss4 12:37 Triage completed. aj1 12:38 Arm band placed on Patient placed in waiting room. aj1 13:08 Kelechi Jones PA is PHCP. [facility] 13:08 Bruno Guardado MD is Attending Physician. [facility] 13:13 Eddie Hanson, RN is Primary Nurse. la1 13:14 Call light in reach. la1 13:47 No provider procedures requiring assistance completed. Patient did not have IV access ae3 during this emergency room visit. Administered Medications: No medications were administered Outcome: 13:27 Discharge ordered by . [facility] 13:47 Discharged to home ambulatory. ae3 13:47 Condition: stable 13:47 Discharge instructions given to patient, Instructed on discharge instructions, follow up and referral plans. medication usage, Demonstrated understanding of instructions, Prescriptions given X 2. 13:48 Patient left the ED. ae3 Signatures: Libra Rubio, RN RN [email or web address] Kelechi Jones PA PA jmm Attema, Lee, ARTEM RN Ce Ro ss4 Jeni Dc ae3
[2018-09-27 14:01] VITALS: TEMP 98
[2018-09-27 14:03] VITALS: BP 111/64; O2SAT 100
== END 2018-09-27 13:48 | disposition home or self-care (01) ==
LOC: ER 12:16
DX: S50.862A Insect bite (nonvenomous) of left forearm, initial encounter (principal); S80.862A Insect bite (nonvenomous), left lower leg, initial encounter; H00.016 Hordeolum externum left eye, unspecified eyelid
CPT/HCPCS: 99282

== ENCOUNTER 2018-11-04 14:36 | Emergency (ER) | payer SELFPAY ==
--- NOTE | 2018-11-04 14:57 | ER ---
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 Transition of care: patient was not received from another setting of care. Onset of symptoms was November 04, 2018. Risk Assessment: Do you want to hurt yourself or someone else? Patient reports no desire to harm self or others. Initial Sepsis Screen: Does the patient meet any 2 criteria? No. Patient's initial sepsis screen is negative. Does the patient have a suspected source of infection? No. Patient's initial sepsis screen is negative. Care prior to arrival: None. 14:41 Method Of Arrival: Ambulatory 14:41 Acuity: ADIEL 4 hj Triage Assessment: 14:44 General: Appears in no apparent distress. uncomfortable, Behavior is calm, cooperative, hj appropriate for age. Pain: Complains of pain in right ear. EENT: Reports pain in right ear. 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 - Social history:: Smoking status: Patient uses tobacco products, Patient/guardian denies using alcohol. - Ebola Screening: : Patient negative for fever greater than or equal to 101.5 degrees Fahrenheit, and additional compatible Ebola Virus Disease symptoms Patient denies exposure to infectious person Patient denies travel to an Ebola-affected area in the 21 days before illness onset. Screenin:43 Abuse screen: Denies threats or abuse. Denies injuries from another. Nutritional hj screening: No deficits noted. Tuberculosis screening: No symptoms or risk factors identified. Fall Risk None identified. Vital Signs: 14:42 BP 119 / 79; Pulse 70; Resp 18; Temp 98.1(TE); Pulse Ox 100% on R/A; Weight 106.59 kg; hj Height 5 ft. 1 in. (154.94 cm); Pain 10/10; 14:42 Body Mass Index 44.40 (106.59 kg, 154.94 cm) hj ED Course: 14:41 Triage completed. hj 14:42 Patient arrived in ED. mr 14:43 Arm band placed on left wrist. hj 14:44 Patient has correct armband on for positive identification. Call light in reach. Side hj rails up X 1. 14:47 Harris Romero, RN is Primary Nurse. hj 14:49 Rona Mclaughlin FNP-C is [facility]. kb 14:49 Campbell Moon MD is Attending Physician. kb 15:12 No provider procedures requiring assistance completed. Patient did not have IV access hj during this emergency room visit. Administered Medications: No medications were administered Outcome: 14:56 Discharge ordered by MD. kb 15:12 Discharged to home ambulatory. hj 15:12 Condition: stable 15:12 Discharge instructions given to patient, Instructed on discharge instructions, follow up and referral plans. medication usage, Demonstrated understanding of instructions, follow-up care, medications, Prescriptions given X 1. 15:12 Patient left the ED. Signatures: Rona Mclaughlin FNP-C FNP-Shalom Myrna Motley mr Harris Romero RN RN hj Corrections: (The following items were deleted from the chart) 14:43 14:42 Pulse 70bpm; Resp 18bpm; Pulse Ox 100% RA; Temp 98.1F Temporal; 106.59 kg; Height hj 5 ft. 1 in.; BMI: 44.4; Pain 10/10; hj
--- NOTE | 2018-11-04 14:57 | EDPHYS ---
Physician Documentation [facility] Name: Marine Mitchell Age: 28 yrs Sex: Female : 1990 Arrival Date: 11/04/2018 Time: 14:42 Bed 12 Private MD: ED Physician Campbell Moon HPI: 11/04 14:53 This 28 yrs old Female presents to ER via Ambulatory with complaints of Ear kb Pain. 14:53 The patient presents with pain, moderate, tenderness. The complaints affect the right kb ear. Onset: The symptoms/episode began/occurred 1 week(s) ago, and became worse today. Modifying factors: The symptoms are alleviated by nothing, the symptoms are aggravated by nothing. Associated signs and symptoms: The patient has no apparent associated signs or symptoms. Severity of symptoms: At their worst the symptoms were moderate in the emergency department the symptoms are unchanged. The patient has not experienced similar symptoms in the past. The patient has not recently seen a physician. Pt reports she has had right ear pain for a week, worse today. 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 - Social history:: Smoking status: Patient uses tobacco products, Patient/guardian denies using alcohol. - Ebola Screening: : Patient negative for fever greater than or equal to 101.5 degrees Fahrenheit, and additional compatible Ebola Virus Disease symptoms Patient denies exposure to infectious person Patient denies travel to an Ebola-affected area in the 21 days before illness onset. ROS: 14:53 Constitutional: Negative for fever, chills, and weight loss, Cardiovascular: Negative kb for chest pain, palpitations, and edema, Respiratory: Negative for shortness of breath, cough, wheezing, and pleuritic chest pain, Abdomen/GI: Negative for abdominal pain, nausea, vomiting, diarrhea, and constipation, MS/Extremity: Negative for injury and deformity, Skin: Negative for injury, rash, and discoloration, Neuro: Negative for headache, weakness, numbness, tingling, and seizure. 14:53 ENT: Positive for ear pain. Exam: 14:53 Constitutional: This is a well developed, well nourished patient who is awake, alert, kb and in no acute distress. Head/Face: Normocephalic, atraumatic. Chest/axilla: Normal chest wall appearance and motion. Nontender with no deformity. No lesions are appreciated. Cardiovascular: Regular rate and rhythm with a normal S1 and S2. No gallops, murmurs, or rubs. Normal PMI, no JVD. No pulse deficits. Respiratory: Lungs have equal breath sounds bilaterally, clear to auscultation and percussion. No rales, rhonchi or wheezes noted. No increased work of breathing, no retractions or nasal flaring. Abdomen/GI: Soft, non-tender, with normal bowel sounds. No distension or tympany. No guarding or rebound. No evidence of tenderness throughout. Skin: Warm, dry with normal turgor. Normal color with no rashes, no lesions, and no evidence of cellulitis. MS/ Extremity: Pulses equal, no cyanosis. Neurovascular intact. Full, normal range of motion. Neuro: Awake and alert, GCS 15, oriented to person, place, time, and situation. Cranial nerves II-XII grossly intact. Motor strength 5/5 in all extremities. Sensory grossly intact. Cerebellar exam normal. Normal gait. 14:53 ENT: External ear(s): pain with movement, that is moderate, of the right ear lobe, Ear canal(s): swelling, that is moderate, of the right canal, TM's: are normal. Vital Signs: 14:42 BP 119 / 79; Pulse 70; Resp 18; Temp 98.1(TE); Pulse Ox 100% on R/A; Weight 106.59 kg; hj Height 5 ft. 1 in. (154.94 cm); Pain 10/10; 14:42 Body Mass Index 44.40 (106.59 kg, 154.94 cm) hj MDM: 14:49 Patient medically screened. kb 14:55 Data reviewed: vital signs, nurses notes. Data interpreted: Pulse oximetry: on room air kb is 100 %. Interpretation: normal. Counseling: I had a detailed discussion with the patient and/or guardian regarding: the historical points, exam findings, and any diagnostic results supporting the discharge/admit diagnosis, the need for outpatient follow up, a family practitioner, to return to the emergency department if symptoms worsen or persist or if there are any questions or concerns that arise at home. Administered Medications: No medications were administered Disposition: 19:00 Co-signature as Attending Physician, Campbell Moon MD Available for consultation at ps1 all times. . Disposition: 11/04/18 14:56 Discharged to Home. Impression: Other otitis externa, right ear. - Condition is Stable. - Discharge Instructions: Otitis Externa, [id number], Ear Drops, Adult, [id number]. - Prescriptions for Cortisporin- TC 3.3-3-10-0.5 mg/mL Otic Suspension - instill 4 drop by OTIC route every 6 hours; 1 bottle. - Medication Reconciliation Form, Thank You Letter, Antibiotic Education, Prescription Opioid Use form. - Follow up: Emergency Department; When: As needed; Reason: Worsening of condition. Follow up: Private Physician; When: 2 - 3 days; Reason: Recheck today's complaints, Continuance of care, Re-evaluation by your physician. Signatures: Rona Mclaughlin, LAURA-Ness SANCHEZ-Harris Villarreal, ARTEM RN Campbell Farley MD MD ps1 Corrections: (The following items were deleted from the chart) 15:12 14:56 11/04/2018 14:56 Discharged to Home. Impression: Other otitis externa, right ear. hj Condition is Stable. Forms are Medication Reconciliation Form, Thank You Letter, Antibiotic Education, Prescription Opioid Use. Follow up: Emergency Department; When: As needed; Reason: Worsening of condition. Follow up: Private Physician; When: 2 - 3 days; Reason: Recheck today's complaints, Continuance of care, Re-evaluation by your physician. kb
[2018-11-04 15:21] VITALS: BP 119/79; TEMP 98.1; O2SAT 100
== END 2018-11-04 15:12 | disposition home or self-care (01) ==
LOC: ER 14:36
DX: H60.8X1 Other otitis externa, right ear (principal); Z72.0 Tobacco use
CPT/HCPCS: 99282

== ENCOUNTER 2019-02-18 13:58 | Emergency (ER) | payer SELFPAY ==
--- NOTE | 2019-02-18 14:38 | ER ---
Nurse's Notes [facility] Name: Marine Mitchell Age: 28 yrs Sex: Female : 1990 Arrival Date: 02/18/2019 Time: 14:01 Bed 16 Private MD: None, None Diagnosis: Hordeolum (externum) (internum) of eyelid Presentation: 02/18 14:22 Presenting complaint: Patient states: pain to right eye, swelling to right eyelid, also sg has blurry vision when she wakes up, no matting or drainage, no itchiness. Transition of care: patient was not received from another setting of care. Onset of symptoms was February 15, 2019. Risk Assessment: Do you want to hurt yourself or someone else? Patient reports no desire to harm self or others. Initial Sepsis Screen: Does the patient meet any 2 criteria? No. Patient's initial sepsis screen is negative. Does the patient have a suspected source of infection? No. Patient's initial sepsis screen is negative. Care prior to arrival: None. 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 - Social history:: Smoking status: . - Ebola Screening: : Patient negative for fever greater than or equal to 101.5 degrees Fahrenheit, and additional compatible Ebola Virus Disease symptoms Patient denies exposure to infectious person Patient denies travel to an Ebola-affected area in the 21 days before illness onset No symptoms or risks identified at this time. Screenin:20 Abuse screen: Denies threats or abuse. Nutritional screening: No deficits noted. rb1 Tuberculosis screening: No symptoms or risk factors identified. Fall Risk None identified. Assessment: 14:20 General: Appears uncomfortable, Behavior is calm, cooperative. Pain: Complains of pain rb1 in right eye Pain currently is 10 out of 10 on a pain scale. Pain began this morning. Neuro: Level of Consciousness is awake, alert, obeys commands, Oriented to person, place, time, situation. Cardiovascular: Capillary refill < 3 seconds is brisk in bilateral fingers. Respiratory: Airway is patent Respiratory effort is even, unlabored, Respiratory pattern is regular, symmetrical. GI: No signs and/or symptoms were reported involving the gastrointestinal system. : No signs and/or symptoms were reported regarding the genitourinary system. EENT: Eyes are tearing on right eye swelling noted to the bottom eyelid. Derm: Skin is pink, warm \T\ dry. Vital Signs: 14:25 BP 129 / 96; Pulse 71; Resp 16; Temp 98.2; Pulse Ox 100% ; Weight 122.47 kg; Height 5 sg ft. 1 in. (154.94 cm); Pain 10/10; 14:25 Body Mass Index 51.02 (122.47 kg, 154.94 cm) ED Course: 14:01 Patient arrived in ED. ag5 14:01 None, None is Private Physician. ag5 14:20 Patient has correct armband on for positive identification. Bed in low position. Call rb1 light in reach. Side rails up X 1. Pulse ox on. NIBP on. 14:22 Soren Johnson PA is PHCP. jr8 14:22 Tremayne Dwyer MD is Attending Physician. jr8 14:25 Triage completed. sg 14:25 Arm band placed on. sg 14:36 Mylene Aly MD is Referral Physician. jr8 14:39 Sara Gonsalez, ARTEM is Primary Nurse. rb1 14:49 No provider procedures requiring assistance completed. Patient did not have IV access rb1 during this emergency room visit. Administered Medications: No medications were administered Outcome: 14:37 Discharge ordered by . jr8 14:49 Patient left the ED. rb1 14:49 Discharged to home ambulatory, with friend. rb1 14:49 Condition: stable 14:49 Discharge instructions given to patient, Instructed on discharge instructions, follow up and referral plans. medication usage, Demonstrated understanding of instructions, follow-up care, medications, Prescriptions given X 1. Signatures: Brown Junior RN RN Soren Johnson PA PA [facility] Sara Gonsalez RN RN [facility] AmariKarena ag5
--- NOTE | 2019-02-18 14:39 | EDPHYS ---
Physician Documentation [facility] Name: Marine Mitchell Age: 28 yrs Sex: Female : 1990 Arrival Date: 02/18/2019 Time: 14:01 Bed 16 Private MD: None, None ED Physician Tremayne Dwyer HPI: 02/18 15:05 This 28 yrs old Female presents to ER via Ambulatory with complaints of Eye jr8 Problem. 15:05 The patient is experiencing pain, redness, to the right eye. Onset: The jr8 symptoms/episode began/occurred acutely, today. Duration: the symptoms are continuous. Aggravated by nothing. Alleviated by blinking. Associated signs and symptoms: Pertinent positives: None. Severity of symptoms: At their worst the symptoms were mild in the emergency department the symptoms are unchanged. The patient has not experienced similar symptoms in the past. The patient has not recently seen a physician. 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 - Social history:: Smoking status: . - Ebola Screening: : Patient negative for fever greater than or equal to 101.5 degrees Fahrenheit, and additional compatible Ebola Virus Disease symptoms Patient denies exposure to infectious person Patient denies travel to an Ebola-affected area in the 21 days before illness onset No symptoms or risks identified at this time. ROS: 15:05 ENT: Negative for injury, pain, and discharge, Neck: Negative for injury, pain, and jr8 swelling, Cardiovascular: Negative for chest pain, palpitations, and edema, Respiratory: Negative for shortness of breath, cough, wheezing, and pleuritic chest pain, Abdomen/GI: Negative for abdominal pain, nausea, vomiting, diarrhea, and constipation, Back: Negative for injury and pain, MS/Extremity: Negative for injury and deformity, Skin: Negative for injury, rash, and discoloration, Neuro: Negative for headache, weakness, numbness, tingling, and seizure. 15:05 Eyes: Positive for pain, redness, swelling, of the right lower eyelid. Exam: 15:05 Visual Acuity: Visual acuity is within normal limits. jr8 15:05 Head/Face: Normocephalic, atraumatic. ENT: Nares patent. No nasal discharge, no septal abnormalities noted. Tympanic membranes are normal and external auditory canals are clear. Oropharynx with no redness, swelling, or masses, exudates, or evidence of obstruction, uvula midline. Mucous membranes moist. Cardiovascular: Regular rate and rhythm with a normal S1 and S2. No gallops, murmurs, or rubs. Normal PMI, no JVD. No pulse deficits. Respiratory: Lungs have equal breath sounds bilaterally, clear to auscultation and percussion. No rales, rhonchi or wheezes noted. No increased work of breathing, no retractions or nasal flaring. Skin: Warm, dry with normal turgor. Normal color with no rashes, no lesions, and no evidence of cellulitis. MS/ Extremity: Pulses equal, no cyanosis. Neurovascular intact. Full, normal range of motion. Neuro: Awake and alert, GCS 15, oriented to person, place, time, and situation. Cranial nerves II-XII grossly intact. Motor strength 5/5 in all extremities. Sensory grossly intact. Cerebellar exam normal. Normal gait. 15:05 Eyes: Periorbital structures: swelling, that is mild, on the right lower eyelid, Pupils: equal, round, and reactive to light and accomodation, Extraocular movements: intact throughout, Conjunctiva: normal, Corneas: are normal, Sclera: no appreciated abnormality, Anterior chamber: normal, no hyphema, on appreciated narrow angle closure, Lids and lashes: stye, seen on the right lid. Vital Signs: 14:25 BP 129 / 96; Pulse 71; Resp 16; Temp 98.2; Pulse Ox 100% ; Weight 122.47 kg; Height 5 sg ft. 1 in. (154.94 cm); Pain 10/10; 14:25 Body Mass Index 51.02 (122.47 kg, 154.94 cm) sg MDM: 14:22 Patient medically screened. jr8 14:36 Data reviewed: vital signs, nurses notes, and as a result, I will discharge patient. jr8 Data interpreted: Pulse oximetry: on room air is 100 %. Interpretation: normal. Counseling: I had a detailed discussion with the patient and/or guardian regarding: the historical points, exam findings, and any diagnostic results supporting the discharge/admit diagnosis, the need for outpatient follow up, an opthalmologist, to return to the emergency department if symptoms worsen or persist or if there are any questions or concerns that arise at home. Administered Medications: No medications were administered Disposition: 02/18/19 14:37 Discharged to Home. Impression: Hordeolum (externum) (internum) of eyelid. - Condition is Stable. - Discharge Instructions: Stye. - Prescriptions for Gentamicin 0.3 % (3 mg/gram) Ophthalmic Ointment - apply 0.5 inch by OPHTHALMIC route 2-3 times daily for 7 days; 3.5 gram. - Work release form, Medication Reconciliation Form, Thank You Letter, Antibiotic Education, Prescription Opioid Use form. - Follow up: Mylene Aly MD; When: 5 - 6 days; Reason: Recheck today's complaints, Continuance of care, Re-evaluation by your physician. - Problem is new. - Symptoms have improved. - Notes: warm compresses 5 x a day for 10-15 minutes at a time Addendum: 02/23/2019 14:38 Co-signature as Attending Physician, Tremayne Dwyer MD. g s Signatures: Brown Junior RN RN sg Soren Johnson PA PA jr8 Sara Gonsalez, ARTEM RN rb1 Tremayne Dwyer MD MD Corrections: (The following items were deleted from the chart) 02/18 14:49 14:37 02/18/2019 14:37 Discharged to Home. Impression: Hordeolum (externum) (internum) rb1 of eyelid. Condition is Stable. Forms are Medication Reconciliation Form, Thank You Letter, Antibiotic Education, Prescription Opioid Use. Follow up: Mylene Aly; When: 5 - 6 days; Reason: Recheck today's complaints, Continuance of care, Re-evaluation by your physician. Problem is new. Symptoms have improved. jr8
[2019-02-18 15:28] VITALS: BP 129/96; TEMP 98.2; O2SAT 100
== END 2019-02-18 14:49 | disposition home or self-care (01) ==
LOC: ER 13:58
DX: H00.022 Hordeolum internum right lower eyelid (principal)
CPT/HCPCS: 99283

== ENCOUNTER 2019-10-19 18:36 | Emergency (ER) | payer SELFPAY ==
--- OUTSIDE RECORDS SUMMARY | 2019-10-19 18:43 | XMS REPORT | Summary of Care ---
:1990 Author Organization [facility] Address [address] [place] [address] Care Team Providers Name Role Phone PAWAN MitchellP Primary Care Provider Reason for Visit Reason Comments Other has nob appt tomorrow during covid screening she says she has back and abd pain Encounter Details Date Type Department Care Team Description 09/20/2019 Telephone [facility] DIANEP- Nina Morgan Ot er (has nob appt Luigi CCHRISTINAP tomorrow during covid [address] screening she says she [place], [place] GABRIELLA A has back and abd pain) [address] [place], [place] [id number] Allergies No Known Allergiesdocumented as of this encounter (statuses as of 09/21/2019) Medications No known medicationsdocumented as of this encounter (statuses as of 09/21/2019) Active Problems Problem Noted Date Other depression 09/21/2019 Missed menses 09/21/2019 documented as of this encounter (statuses as of 09/21/2019) Social History Tobacco Use Types Packs/Day Years Used Date Never Assessed Sex Assigned at Date Recorded Not on file Job Start Date Occupation Industry Not on file Not on file Not on file Travel History Travel Start Travel End No recent travel history available. COVID-19 Exposure Response Date Recorded In the last month, have you been in contact with No / Unsure 09/21/2019 9:49 AM CDT someone who was confirmed or suspected to have Coronavirus / COVID-19? documented as of this encounter Last Filed Vital Signs Not on filedocumented in this encounter Plan of Treatment Date Type Specialty Care Team Description 10/05/2019 [facility] [address] [place], [place] [address] [phone] Health Maintenance Due Date Last Done Comments VARICELLA VACCINES (1 of 2 - 1989 2-dose childhood series) DTaP,Tdap,and Td Vaccines (1 - 1999 Tdap) PAP SMEAR 2009 INFLUENZA VACCINE (#1) 2019 PNEUMOCOCCAL 0-64 YEARS COMBINED Aged Out No longer eligible based on SERIES patient's age to complete this topic documented as of this encounter Results Not on filedocumented in this encounter Insurance Payer Benefit Plan / Subscriber ID Effective Phone Address T ype Group Dates MEDICAID MEDICAID PENDING 2019-[address] Pending [place] [address] documented as of this encounter
--- OUTSIDE RECORDS SUMMARY | 2019-10-19 18:43 | XMS REPORT ---
:1990 Author Organization [facility] t Address [address] Sinha. [address] [place] [address] Care Team Providers Name Role Phone Ness Clark Attending Clinician Problems This patient has no known problems. Allergies, Adverse Reactions, Alerts This patient has no known allergies or adverse reactions. Medications This patient has no known medications. Procedures This patient has no known procedures. Encounters Start End Encounter Admission Attending Care Care Encounter Source Date/Time Date/Time Type Type Clinicians Facility Department ID 2019-09-21 2019-09-21 FELICE Ray [id number] 09:44:11 10:03:10 Nina Arzola BENCH CARPENTER [id number] Visit REGIONAL [id number] MATERNAL [phone] & CHILD [address] [place] [address] Results This patient has no known results.
--- OUTSIDE RECORDS SUMMARY | 2019-10-19 18:43 | XMS REPORT | Summary of Care ---
:1990 Author Organization [facility] Address [address] [place] [address] Care Team Providers Name Role Phone Stephen LAURA Primary Care Provider Reason for Visit Reason Comments Depression Encounter Details Date Type Department Care Team Description 09/21/2019 Initial [facility]- [place]aren, Sisi d menses (Primary Dx); Visit [place] Nina Arzola, [facility] Other depression [address] [facility] [address] GABRIELLA A [phone] [place] [id number] Allergies No Known Allergiesdocumented as of this encounter (statuses as of 09/21/2019) Medications Medication Sig Dispensed Refills Start Date End Date Status buPROPion XL Take 1 tablet by 30 tablet 0 09/21/2019 Active (WELLBUTRIN XL) 150 mg mouth daily. 24 hr tabletIndications: Other depression documented as of this encounter (statuses as [...] of this encounter Last Filed Vital Signs Vital Sign Reading Time Taken Comments Blood Pressure 120/84 09/21/2019 9:50 AM CDT Pulse 72 09/21/2019 9:50 AM CDT Temperature 37.4 C (99.4 F) 09/21/2019 9:50 AM CDT Respiratory Rate 16 09/21/2019 9:50 AM CDT Oxygen Saturation - - Inhaled Oxygen Concentration - - Weight 122.5 kg (270 lb 2 oz) 09/21/2019 9:50 AM CDT Height 154.9 cm (5' 1") 09/21/2019 9:50 AM CDT Body Mass Index 51.04 09/21/2019 9:50 AM CDT documented in this encounter Progress Notes Nina Morgan, JOSÉ ANTONIO - 09/21/2019 10:00 AM CDT Chief complaint: Chief Complaint Patient presents with Depression HPI: the patient was here today for new ob visit, she reports her last lmp as 08/27/19. On todays visit her upt was negative. She does report symptoms of depression and reports she has never been managedby anyone and neither has she seen anyone before in the past in regards to depression. She does report symptoms today but denies symptoms suicidal/homicidal ideations on todays exam . Histories OB History Para Term AB Living 1 SAB TAB Ectopic Multiple Live Births # Outcome Date GA Lbr Edgar/2nd Weight Sex Delivery Anes PTL Lv 1 No past medical history on file. No family history on file. No family status information on file. No past surgical history on file. Social History Socioeconomic History Marital status: Single Spouse name: Not on file Number of children: Not on file Years of education: Not on file Highest education level: Not on file Occupational History Not on file Social Needs Financial resource strain: Not on file Food insecurity: Worry: Not on file Inability: Not on file Transportation needs: Medical: Not on file Non-medical: Not on file Tobacco Use Smoking status: Not on file Substance and Sexual Activity Alcohol use: Not on file Drug use: Not on file Sexual activity: Not on file Lifestyle Physical activity: Days per week: Not on file Minutes per session: Not on file Stress: Not on file Relationships Social connections: Talks on phone: Not on file Gets together: Not on file Attends jainism service: Not on file Active member of club or organization: Not on file Attends meetings of clubs or organizations: Not on file Relationship status: Not on file Intimate partner violence: Fear of current or ex partner: Not on file Emotionally abused: Not on file Physically abused: Not on file Forced sexual activity: Not on file Other Topics Concern Not on file Social History Narrative Not on file Social History Substance and Sexual Activity Sexual Activity Not on file Labs No new labs Radiology No new radiology. Allergies Marine has No Known Allergies. Medications Marine has a current medication list which includes the following prescription(s): bupropion xl. Review of Systems Constitutional: Negative. HENT: Negative. Eyes: Negative. Respiratory: Negative. Breasts: Negative. Cardiovascular: Negative. Gastrointestinal: Negative. Genitourinary: Negative. Musculoskeletal: Negative. Skin: Negative. Neurological: Negative. Psychiatric/Behavioral: Negative. Endocrine: Endocrine negative BP 120/84 (BP Location: Right arm, Patient Position: Sitting, BP CUFF SIZE: Adult Large) | Pulse 72 | Temp 37.4 C (99.4 F) (Oral) | Resp 16 | Ht 5' 1" (1.549 m) | Wt 270 lb 2 oz (122.5 kg) | LMP 08/27/2019 (Approximate) | Unknown | BMI 51.04 kg/m Pregravid BMI: Could not be calculated Physical Exam Vitals reviewed. Constitutional: She is oriented to person, place, and time. She appears well- developed and well-nourished. Her body habitus is normal. Cardiovascular: Regular rate and rhythm. No peripheral edema present. Pulmonary/Chest: Normal inspiratory effort. Neuro/Psychiatric: She has a normal mood and affect. She is oriented to person, place, and time. Skin: Skin normal. No lesion, no rash and no ulceration present. Assessment/Plan Return to clinic in 2 weeks. for WWE and follow up depression Missed menses (primary encounter diagnosis) Comment: upt neg Plan: as needed mgmt Other depression Comment: reports Plan: buPROPion XL (WELLBUTRIN XL) 150 mg 24 hr tablet Depression screen positive. -Medication begun -Follow up with provider scheduled Little interest or pleasure in doing things: (!) 3 Feeling down, depressed, or hopeless: (!) 3 PHQ-2 Score (_/6): (!) 6 PHQ-2 Scoring Interpretation: Positive screen Trouble falling or staying asleep, or sleeping too much: 3 Feeling tired or having little energy: 2 Poor appetite or overeatin Feeling bad about yourself - or that you are a failure or have let yourself or your family down: 3 Trouble concentrating on things, such as reading the newspaper or watching television: 3 Moving or speaking so slowly that other people could have noticed. Or the opposite - being so fidgety or restless that you have been moving around a lot more than usual: 2 Thoughts that you would be better off , or of hurting yourself in some way: 2 PHQ-9: TOTAL SCORE: 22 If you checked off any problems, how difficult have these problems made it for you to do your work, take care of things at home, or get along with other people?: Very difficult Patient advised to seek psych, she verbalized understanding, recourse list provided for patient This visit did not involve counseling and coordination that comprised more than 50% of the visit time. JOSÉ ANTONIO Pickett 09/21/2019 10:13 AM documented in this encounter Plan of Treatment Date Type Specialty Care Team Description 10/05/2019 Office Visit OB Satellites Solo Morgan [facility] [address] [place], [place] [address] [phone] Health Maintenance Due Date Last Done Comments VARICELLA VACCINES (1 of 2 - 1989 2-dose childhood series) DTaP,Tdap,and Td Vaccines (1 - 1999 Tdap) PAP SMEAR 2009 INFLUENZA VACCINE (#1) 2019 PNEUMOCOCCAL 0-64 YEARS COMBINED Aged Out No longer eligible based on SERIES patient's age to complete this topic documented as of this encounter Procedures Procedure Name Priority Date/Time Associated Comments Diagnosis POCT TEST Routine 09/21/2019 10:33 AM R esults for this CDT procedure are i n the results section. POCT URINALYSIS W/O Routine 09/21/2019 Results for this SPECIFIC GRAVITY procedure a re in the results section. documented in this encounter Results POCT TEST (09/21/2019 10:33 AM CDT) Pathologist Sig nature POCT PREG Negative On board controls acceptable Yes with C Line POCT PREG LOT # POCT PREG TEST DATE Specimen Urine - URINE, CLEAN CATCH POCT URINALYSIS W/O SPECIFIC GRAVITY (09/21/2019) Pathologist Sig nature POCT PH U na 5 - 8 mg/dl POCT U LEUK EST trace Negative - Negative POCT U NIT neg Negative - Negative POCT U PROT trace Negative - Negative POCT U GLU neg Negative - Negative POCT U KETONE neg Negative - Negative POCT U BLD neg Negative - Negative Specimen Urine - URINE, CLEAN CATCH documented in this encounter Visit Diagnoses Diagnosis Missed menses - Primary Absence of menstruation Other depression documented in this encounter Insurance Payer Benefit Plan / Subscriber ID Effective Phone Address T ype Group Dates MEDICAID MEDICAID PENDING 2019-[address] [place] [address] (Home) [place], [place] [phone] (Work) documented as of this encounter
--- OUTSIDE RECORDS SUMMARY | 2019-10-19 18:43 | XMS REPORT | Summary of Care ---
:1990 Author Organization [facility] - Health Address [address] [place] [address] Care Team Providers Name Role Phone LAURA Mitchell Primary Care Provider Encounter Details Date Type Department Care Team Description 09/21/2019 Orders Only [facility] Doctor Unassigned, No [address] [facility] [place] [address] [address] [place] [address] Allergies No Known Allergiesdocumented as of this encounter (statuses as of 09/21/2019) Medications No known medicationsdocumented as of this encounter (statuses as of 09/21/2019) Active Problems Not on filedocumented as of this encounter (statuses as of 09/21/2019) Social History Tobacco Use Types Packs/Day Years Used Date Never Assessed Sex Assigned at Date Recorded Not on file Job Start Date Occupation Industry Not on file Not on file Not on file Travel History Travel Start Travel End No recent travel history available. documented as of this encounter Last Filed Vital Signs Not on filedocumented in this encounter Plan of Treatment Date Type Specialty Care Team Description 09/21/2019 Initial Visit OB Satellites Wolfgang Morgan, JOSÉ ANTONIO [address] [place], [place] [address] [phone] Health Maintenance Due Date Last Done Comments VARICELLA VACCINES (1 of 2 - 1989 2-dose childhood series) DTaP,Tdap,and Td Vaccines (1 - 1999 Tdap) PAP SMEAR 2009 INFLUENZA VACCINE (#1) 2019 PNEUMOCOCCAL 0-64 YEARS COMBINED Aged Out No longer eligible based on SERIES patient's age to complete this topic documented as of this encounter Procedures Procedure Name Priority Date/Time Associated Diagnosis Comme nts ASSIGNMENT OF BENEFITS Routine 09/21/2019 9:41 AM CDT documented in this encounter Results Not on filedocumented in this encounter Insurance Payer Benefit Plan / Subscriber ID Effective Phone Address T ype Group Dates MEDICAID MEDICAID PENDING 2019-[address] [place] [address] documented as of this encounter
--- OUTSIDE RECORDS SUMMARY | 2019-10-19 18:43 | XMS REPORT | Summary of Care ---
:1990 Author Organization [facility] Address [address] [place] [address] Care Team Providers Name Role Phone Stephen LAURA Primary Care Provider Reason for Visit Reason Comments Depression Encounter Details Date Type Department Care Team Description 09/21/2019 Initial [facility]- [place], Sisi d menses (Primary Dx); Visit [place] [facility], [facility] Other depression [address] [facility] [address] GABRIELL[place] A [phone] [place] [id number] Allergies No Known Allergiesdocumented as of this [...] file Gets together: Not on file Attends yazidi service: Not on file Active member of [...] OB Satellites Solo Morgan [facility] [address] [place], [place] [address] [phone] Health Maintenance Due Date Last Done Comments [...] T ype Group Dates MEDICAID MEDICAID PENDING 2019-[address] [place] [address] (Home) [place], [place] [phone] (Work) documented as of this encounter
[2019-10-19 20:44] VITALS: BP 120/74; TEMP 98.5; O2SAT 98
--- NOTE | 2019-10-25 13:43 | ER ---
Nurse's Notes [facility] Name: Marine Mitchell Age: 29 yrs Sex: Female : 1990 Arrival Date: 10/19/2019 Time: 18:41 Bed Waiting Private MD: Diagnosis: Presentation: 10/18 18:59 Chief complaint: Patient states: i have left foot swelling for 2 years now but its mg2 getting worse. denies trauma. Coronavirus screen: Proceed with normal triage. Patient denies a cough. Patient denies shortness of breath or difficulty breathing. Patient denies measured and/or subjective temperature greater than 100.4F prior to today's visit. Patient denies travel on a cruise ship or to a country the [facility] currently lists as an affected area. Patient denies contact with known and/or suspected case of COVID-19. Ebola Screen: No symptoms or risks identified at this time. Initial Sepsis Screen: Does the patient meet any 2 criteria? No. Patient's initial sepsis screen is negative. Does the patient have a suspected source of infection? No. Patient's initial sepsis screen is negative. Risk Assessment: Do you want to hurt yourself or someone else? Patient reports no desire to harm self or others. Onset of symptoms. 18:59 Method Of Arrival: Ambulatory mg2 18:59 Acuity: ADIEL 4 mg2 Historical: - Allergies: 19:02 No Known Allergies; mg2 - Home Meds: 19:02 Tegretol Oral [Active]; mg2 - PMHx: 19:02 Seizures; mg2 - PSHx: 19:02 None; mg2 - Immunization history:: Flu vaccine is not up to date. - Social history:: Smoking status: Patient denies any tobacco usage or history of. Patient uses street drugs, marijuana, Patient/guardian denies using alcohol. Assessment: 20:03 Reassessment: called but no answer. mg2 20:38 Reassessment: called but no answer. mg2 Vital Signs: 18:59 BP 120 / 74; Pulse 77; Resp 18; Temp 98.5; Pulse Ox 98% on R/A; Height 5 ft. 1 in. mg2 (154.94 cm); ED Course: 18:41 Patient arrived in ED. mr 19:01 Triage completed. mg2 19:02 Arm band placed on. mg2 Administered Medications: No medications were administered Outcome: 20:38 Eloped from waiting room, before seeing physician mg2 20:39 Patient left the ED. mg2 Signatures: Myrna Motley Michele, RN RN mg2
== END 2019-10-19 20:39 | disposition left against medical advice (07) ==
LOC: ER 18:36
DX: Z53.21 Procedure and treatment not carried out due to patient leaving prior to being seen by health care provider (principal)
CPT/HCPCS: 99281

== ENCOUNTER 2019-10-28 16:17 | Emergency (ER) | payer SELFPAY ==
--- OUTSIDE RECORDS SUMMARY | 2019-10-28 16:18 | XMS REPORT | Continuity of Care Document ---
:1990 Author Organization [facility] t Address [address] [place] [address] Dr. Sinha. [address] [place] [address] Care Team Providers Name Role Phone Ness [...] Facility Department ID 2019-09-21 2019-09-21 FELICE Ray [id number] 09:44:11 10:03:10 Nina Arzola GENERAL MANAGER IN TRAINING [id number] Visit REGIONAL [id number] MATERNAL [id number] & CHILD [address] [place] [address] Results This patient has no known results.
[2019-10-28 18:22] LABS: Absolute Lymphocytes (CBC) 2.4 K/uL (0.7-4.9); Basophils % 0.4 % (0-1.3); Hematocrit 42.8 % (36.0-45.0); MPV 11.1 fL (7.6-11.3); RBC Red Blood Cell Count 5.57 M/uL (3.86-4.86)
[2019-10-28 18:26] LABS: Protime INR 1.03
[2019-10-28 18:41] LABS: ALT/SGPT 22 U/L (12-78); AST/SGOT 14 U/L (15-37); Albumin 3.8 g/dL (3.4-5.0); Alkaline Phosphatase 98 U/L (45-117); BUN Blood Urea Nitrogen 11 mg/dL (7-18); Bicarbonate 24 mmol/L (21-32); Bilirubin Direct < 0.1 mg/dL (0-0.2); Bilirubin Total 0.2 mg/dL (0.2-1.0); Glucose Level 96 mg/dL (74-106); Potassium 3.5 mmol/L (3.5-5.1); Sodium Level 138 mmol/L (136-145)
[2019-10-28 18:45] LABS: Urine Blood NEGATIVE (NEG); Urine Glucose NEGATIVE (NEG); Urine Protein TRACE (NEG); Urine Specific Gravity >1.030 (1.005-1.030)
[2019-10-28 18:52] LABS: Barbiturates NEGATIVE (NEGATIVE); Benzodiazepines NEGATIVE (NEGATIVE); Cocaine NEGATIVE (NEGATIVE); METHAMPHETAM NEGATIVE (NEGATIVE); Methadone NEGATIVE (NEGATIVE); Opiates NEGATIVE (NEGATIVE); Phencyclidine NEGATIVE (NEGATIVE); THC Cannibis POSITIVE (NEGATIVE)
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
[2019-10-28 23:48] VITALS: O2SAT 100
[2019-10-28 23:49] VITALS: BP 127/79; TEMP 97.5
--- NOTE | 2019-10-29 11:52 | EKG ---
Test Date: 2019-10-28 Test Time: 18:48:03 Manufacturing Leader: MEASUREMENT RESULTS: Intervals: Rate: 60 GA: 110 QRSD: 82 QT: 398 QTc: 398 [place]: P: 35 GA: 110 QRS: 5 T: 0 INTERPRETIVE STATEMENTS: Sinus rhythm with short GA Otherwise normal ECG Compared to ECG 01/08/2017 21:05:29 Short GA interval now present Atrial abnormality no longer present Electronically Signed On 10-29-19 11:50:16 CDT by Ángel Shaw
== END 2019-10-28 23:43 | disposition short-term general hospital (02) ==
LOC: ER 16:17
DX: R45.851 Suicidal ideations (principal); F32.9 Major depressive disorder, single episode, unspecified; F17.210 Nicotine dependence, cigarettes, uncomplicated
CPT/HCPCS: 36415; 80048; 80076; 80307; 80320; 80329; 81003; 81025; 85025; 85610; 85730; 93005; 99285

== ENCOUNTER 2019-11-29 20:23 | Emergency (ER) | payer SELFPAY ==
--- OUTSIDE RECORDS SUMMARY | 2019-11-29 20:25 | XMS REPORT | Clinical Summary ---
:1990 Author Organization [facility] Address [address] [place] [address] Care Team Providers Name Role Phone Asked, Pcp Primary Care Provider Unavailable Allergies No Known Allergies Medications Medication Sig Dispensed Refills Start End Date Status Date gabapentin Take 1 capsule 90 capsule 0 12/04/19 Act cristino (NEURONTIN) 300 mg (300 mg total) 0 20 capsuleIndications by mouth 3 : neuropathic pain (three) times a day for 30 days .neuropathic pain. hydrOXYzine Take 1 tablet 30 tablet 0 12/04/19 Acti ve (ATARAX) 25 MG (25 mg total) 0 20 tabletIndications: by mouth 3 anxiety (three) times a day as needed for anxiety for up to 30 days .anxious. sertraline Take 1 tablet 30 tablet 0 12/04/19 Activ e (ZOLOFT) 50 MG (50 mg total) 0 20 tabletIndications: by mouth daily anxiety with for 30 days depression .anxiousness associated with depression. traZODone Take 1 tablet 30 tablet 0 12/04/19 Active (DESYREL) 50 MG (50 mg total) 0 20 tabletIndications: by mouth insomnia nightly for 30 associated with days .insomnia depression associated with depression. carBAMazepine XR Take by mouth 2 0 0 Discontinued (TEGretol XR) 100 (two) times a 20 (Stop Taking at MG 12 hr tablet day. Disc harge) Active Problems Problem Noted Date Major depression 10/29/2019 Encounters Date Type Specialty Care Team Description 10/31/2019 Documentation Medical Records Provider, Unknown 10/29/2019 - Hospital Encounter Psychiatry Liza Finn, 11/04/2019 Seth Hawkins MD Kazimi, Iram Fatima, MD 10/28/2019 Intake Access after 11/28/2018 Family History Medical History Relation Name Comments No Known Problems Brother No Known Problems Cousin Suicide Attempts Father No Known Problems Maternal Aunt No Known Problems Maternal Grandfather No Known Problems Maternal Grandmother No Known Problems Maternal Uncle No Known Problems Mother No Known Problems Other No Known Problems Paternal Aunt No Known Problems Paternal Grandfather No Known Problems Paternal Grandmother No Known Problems Paternal Uncle No Known Problems Sister Relation Name Status Comments Brother Cousin Father Maternal Aunt Maternal Grandfather Maternal Grandmother Maternal Uncle Mother Other Paternal Aunt Paternal Grandfather Paternal Grandmother Paternal Uncle Sister Social History Tobacco Use Types Packs/Day Years Used Date Never Smoker Smokeless Tobacco: Never Used Alcohol Use Drinks/Week oz/Week Comments Never Alcohol Habits Answer Date Recorded How often do you have a drink containing alcohol? Never 10/29/2019 How many drinks containing alcohol do you have on a typical Not asked day when you are drinking? How often do you have six or more drinks on one occasion? No t asked Sex Assigned at Date Recorded Not on file Job Start Date Occupation Industry Not on file Not on file Not on file Travel History Travel Start Travel End No recent travel history available. Last Filed Vital Signs Vital Sign Reading Time Taken Comments Blood Pressure 122/63 11/04/2019 5:55 AM CDT Pulse 78 11/04/2019 5:55 AM CDT Temperature 36.4 C (97.6 F) 11/04/2019 5:55 AM CDT Respiratory Rate 16 11/04/2019 5:55 AM CDT Oxygen Saturation 95% 11/04/2019 5:55 AM CDT Inhaled Oxygen Concentration - - Weight 118 kg (261 lb) 10/29/2019 1:56 AM CDT Height 154.9 cm (5' 1") 10/29/2019 1:56 AM CDT Body Mass Index 49.32 10/29/2019 1:56 AM CDT Plan of Treatment Not on file Procedures Procedure Name Priority Date/Time Associated Comments Diagnosis HCG QUALITATIVE, Routine 10/29/2019 4:10 Results for this SERUM SCREEN PM CDT procedure are i n the results section. SYPHILIS TOTAL Routine 10/29/2019 4:10 Results f or this ANTIBODY PM CDT procedure are i n the results section. LIPID PANEL Routine 10/29/2019 4:10 Results for this PM CDT procedure are i n the results section. HEMOGLOBIN A1C Routine 10/29/2019 4:10 Results f or this PM CDT procedure are i n the results section. HIV AG/AB COMBINATION Routine 10/29/2019 4:00 Re sults for this AM CDT procedure are i n the results section. after 11/28/2018 Results Syphilis total antibody (10/29/2019 4:10 PM CDT) Pathologist [facility] Syphilis total Non-reactiveComment Non-reactive [facility] antibody : No serological HOSPITAL evidence of syphilis infection. Specimen Blood Performing Organization Address City/[facility]/Zipcode Phone Number [facility] DEPARTMENT OF PATHOLOGY AND [address] [place] [phone] [address] hCG qualitative, serum screen (10/29/2019 4:10 PM CDT) Pathologist [facility] hCG qualitative, NegativeComment: [facility] serum Sensitivity of HCG HOSPITAL test: 25 mIU/mL Specimen Blood Performing Organization Address City/[facility] Phone Number [facility] DEPARTMENT OF PATHOLOGY AND [address] [place] [address] [phone] [address] Hemoglobin A1c (10/29/2019 4:10 PM CDT) Pathologist [facility] Hemoglobin A1C 5.9 (H) 4.0 - 5.6 % [facility] Comment: HOSPITAL HbA1c cutoffs for diagnosing diabetes: 4.0% - 5.6% = normal 5.7% - 6.4% = increased risk for diabetes (prediabetes )9 >=6.5% = diabetes9 Goals for glycemic control (ADA 2016) < 7.0% Target for non adults with diabetes. More or less stringent targets may be appropriate for individual patients. <7.5% Target for Children and adolescents with type 1 diabetes. Specimen Blood Performing Organization Address City/[facility]/Zipcode Phone Number [facility] DEPARTMENT OF PATHOLOGY AND [address] [place] [address] [phone] [address] Lipid panel (10/29/2019 4:10 PM CDT) Pathologist [facility] Cholesterol 127 <200 mg/dL [facility] Triglycerides 103 <150 mg/dL [facility] HDL cholesterol 42 >40 mg/dL [facility] LDL cholesterol 75Comment: Result <100 mg/dL [place] obtained by direct YAZIDI LDL measurement [facility] Lipid panel [facility] interpretation Comment: YAZIDI Total Cholesterol (mg/dL) HOSPIT [place] <200 Desirable 200-239 Borderline-high >=240 High Triglycerides (mg/dL) <150 Normal 150-199 Borderline-high 200-499 High >=500 Very high HDL Cholesterol (mg/dL) <40 Low (male) <40 Low (female) LDL Cholesterol (mg/dL) <100 Optimal 100-129 Near or above optimal 130-159 Borderline-high 160-189 High >=190 Very high Risk Catergories that modify LDL goals. Risk Catergories LDL goal (mg/d L) CHD and CHD risk equivalent <100 (10-year risk >20%) Multiple (2+) risk factors <130 (10-year risk =<20%) 0-1 risk factors <160 (<10-year risk) Defining levels of lipids in metabolic syndrome Triglycerides >=150 mg/dL HDL Cholesterol Men <40 mg /dL Women <40 mg/ dL Non-HDL cholesterol is a second target for therapy in persons with high triglycerides (>=200 mg/dL) Specimen Blood Performing Organization Address City/State/Zipcode Phone Number [facility] DEPARTMENT OF PATHOLOGY AND [address] [place] [address] [phone] [address] HIV Ag/Ab combination (10/29/2019 4:00 AM CDT) HIV Ag/Ab combination Non-reactive Non-reactive [facility] Specimen Blood Performing Organization Address City/State/Zipcode Phone Number [facility] DEPARTMENT OF PATHOLOGY AND [address] [place] [address] [phone] [address] after 11/28/2018 Advance Directives For more information, please contact: [phone] Type Date Recorded 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
--- OUTSIDE RECORDS SUMMARY | 2019-11-29 20:26 | XMS REPORT | Continuity of Care Document ---
:1990 Author Organization [facility] t Address [address] [place] [address] [address] [place] [address] Care Team Providers Name Role Phone Asked, Pcp Primary Care Physician Unavailable Chino Finn MD. Attending Clinician Joel MORENO, N. Attending Clinician Jack Schuster MD Attending Clinician Provider Attending Clinician Unavailable Ness Clark Attending Clinician DEJA Admitting Clinician Unavailable Problems Condition Condition Condition Status Onset Resolution Last Treating Co mments Source Name Details Category Date Date Treatment Clinician Date Major Major Disease Active [place] depression depression 6-05 Pr thodi 00:00: st 00 Allergies, Adverse Reactions, Alerts This patient has no known allergies or adverse reactions. Family History Family Member Diagnosis Comments Start Date Stop Date Source Natural brother No Known Problems [place] [facility] Cousin No Known Problems [place] [facility] Natural father Suicide Attempts [place] [facility] Maternal aunt No Known Problems [place] [facility] Maternal grandfather No Known Problems [place] [facility] Maternal grandmother No Known Problems [place] [facility] Maternal uncle No Known Problems Jim stosugar [facility] Natural mother No Known Problems [place] [facility] Other No Known Problems [place] [facility] Paternal aunt No Known Problems [place] [facility] Paternal grandfather No Known Problems [place] [facility] Paternal grandmother No Known Problems [place] [facility] Paternal uncle No Known Problems Jim Fyre Natural sister No Known Problems Jim Frye Social History Social Habit Start Date Stop Date Quantity Comments Source History [facility] Meth odist Alcohol Std Drinks History [facility] Alcohol Binge Sex Assigned At [facility] M [facility] Alcohol intake 2019-10-29 2019-10-29 Lifetime [facility] Me thodist 00:00:00 00:00:00 non-drinker (finding) History SDND 2019-10-29 2019-10-29 1 [facility] Alcohol Frequency 00:00:00 00:00:00 Smoking Status Start Date Stop Date Source Never smoker [facility] t Medications Ordered Filled Start Stop Current Ordering Indication Dosage Frequency Signature Comments Components Source Medication Medication Date Date Medication? Clinician (SIG) Name Name carBAMazepi 2019- No Q.5D Take by Ion batres ne XR 11-03 mouth 2 [facility] (TEGretol 15:01: 00:00 (two) st XR) 100 MG 51 :00 times a 12 hr day. tablet gabapentin 2019- Yes neuropathic 300mg Q.[id number] Take 1 [place] (NEURONTIN) 11-03 pain [id number] capsule [facility] 300 mg 00:00: 23:59 3D ([address] capsule 00 :00 total) by mouth 3 (three) times a day for 30 days .neuropath ic pain. hydrOXYzine 2019- Yes anxiety 25mg Q.[id number] Take 1 [place] (ATARAX) 25 11-03 [id number] tablet (25 [facility] MG tablet 00:00: 23:59 3D mg total) st 00 :00 by mouth 3 (three) times a day as needed for anxiety for up to 30 days .anxious. sertraline 2020- Yes [facility]-03 with tablet (50 M ethodi MG tablet 00:00: 23:59 depression mg total) st 00 :00 by mouth daily for 30 days .anxiousne ss associated with depression . traZODone 2020- Yes insomnia 50mg QD Take 1 H ounoreen (DESYREL) 11-03 associated tablet (50 Methodi 50 MG 00:00: 23:59 with mg total) st tablet 00 :00 depression by mouth nightly for 30 days .insomnia associated with depression . Vital Signs Vital Name Observation Time Observation Value Comments Source Systolic blood 2019-11-04 05:55:52 122 mm[Hg] [place] [facility] pressure Diastolic blood 2019-11-04 05:55:52 63 mm[Hg] [place] [facility] pressure Heart rate 2019-11-04 05:55:52 78 /min Mitchel Frye Body temperature 2019-11-04 05:55:52 36.44 Lala [place] [facility] Respiratory rate 2019-11-04 05:55:52 16 /min [place] [facility] Oxygen saturation in 2019-11-04 05:55:52 95 /min Mitchel Frye Arterial blood by Pulse oximetry Body height 2019-10-29 01:56:00 154.9 cm Mitchel Frye Body weight 2019-10-29 01:56:00 118.389 kg Mitchel Frye BMI 2019-10-29 01:56:00 49.32 kg/m2 Mitchel Frye Procedures Procedure Date / Time Performed Performing Clinician Sour e HEMOGLOBIN A1C 2019-10-29 16:10:00 Pedrito Donato LIPID PANEL 2019-10-29 16:10:00 Pedrito Donato SYPHILIS TOTAL ANTIBODY 2019-10-29 16:10:00 Pedrito Donato HCG QUALITATIVE, SERUM 2019-10-29 16:10:00 Pedrito Donato SCREEN HIV AG/AB COMBINATION 2019-10-29 04:00:00 Pedrito Donato Encounters Start End Encounter Admission Attending Care Care Encounter Source Date/Time Date/Time Type Type Clinicians Facility Department ID 2019-10-29 2019-11-04 Inpatient [facility] [id number] [place] 00:00:00 00:00:00 MATTHIAS [address] 2019-09-21 2019-09-21 Initial Akinsipe, [facility] [id number] 09:44:11 10:03:10 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 More or less stringent targets may be appropriate for individual shannan ents. <7.5% Target for Children an d adolescents with type 1 diabetes . Lab Interpretation (test code = Abnormal 83870-4) Mitchel KumaristSyphilis total [id number] 18:19:38 Test Item Value Reference Range Interpretation Comments Syphilis total Non-reactive Non-reactive No serologica l antibody (test code evidence of syphilis = 6194) infection. [place] MethodistLipid [id number] 17:47:31 Test Item Value Reference Interpretation Comments Range Cholesterol (test 127 mg/dL <200 code = 2093-3) Triglycerides (test 103 mg/dL <150 code = 2571-8) HDL cholesterol 42 mg/dL >40 (test code = 2085-9) LDL cholesterol 75 mg/dL <100 Result obtai faizan by direct (test code = 2089-1) LDL [place] surement Lipid panel SeeBelow Total Cholester ol (mg/dL) interpretation (test < 200 code = 02281-1) Desirable 200-239 Borderline -high >=240 Hi gh Triglyceri diana (mg/dL) <150 No rmal 150-199 Borderline-high 200-499 High >=500 Very high HDL Choles terol (mg/dL) <40 Low (male) < 40 Low (female) L DL Cholesterol (mg /dL) <100 Optimal 1 00-129 Near or above o ptimal 130-159 Borderline-high 160-189 High >=190 Very high Risk Cat ergories that modify LDL goals.Risk Catergories LDL goal (mg/dL )CHD and CHD risk equiva lent <100 (10-year risk >20%)Multiple ( 2+) risk factors < 130 (10-year risk = <20%)0-1 risk factors <160 (<10-ye ar risk) Defining levels of lipids in metabolic syndromeTriglyc erides > =150 mg/dLHDL Choles terol Men <40 mg/dL Women <40 mg/dL Non-HDL cholest josias is a second target f or therapy in personswith high triglycerides ( >=200 mg/dL) Mitchel FryehCG qualitative, serum [id number] 16:58:18 Test Item Value Reference Range Interpretation Comments hCG qualitative, Negative Sensitivity of HCG test: serum (test code = 25 mIU/mL 2118-8) Mitchel FryeHIV Ag/Ab [id number] 08:18:50 Test Item Value Reference Range Interpretation Comments HIV Ag/Ab combination (test code Non-reactive Non-reactive = 5299) Mitchel Frye
[2019-11-29 21:14] LABS: Absolute Lymphocytes (CBC) 2.1 K/uL (0.7-4.9); Basophils % 0.3 % (0-1.3); Hematocrit 38.8 % (36.0-45.0); Lymphocytes % 15.4 % (15.3-44.8); MPV 10.5 fL (7.6-11.3); RBC Red Blood Cell Count 5.14 M/uL (3.86-4.86)
[2019-11-29] MEDS ORDERED: MORPHINE 4 MG/ML SYR ONE (21:25)
[2019-11-29] MEDS ORDERED: ONDANSETRON 4 MG/2 ML VIAL ONE (21:26)
[2019-11-29] MEDS ORDERED: NA CHLORIDE 0.9% 1,000 ML ONE (21:26)
[2019-11-29 21:35] LABS: ALT/SGPT 18 U/L (12-78); AST/SGOT 16 U/L (15-37); Albumin 3.2 g/dL (3.4-5.0); Alkaline Phosphatase 87 U/L (45-117); BUN Blood Urea Nitrogen 11 mg/dL (7-18); Bicarbonate 22 mmol/L (21-32); Bilirubin Direct < 0.1 mg/dL (0-0.2); Bilirubin Total 0.1 mg/dL (0.2-1.0); Glucose Level 116 mg/dL (74-106); Lipase 181 U/L (73-393); Potassium 3.8 mmol/L (3.5-5.1); Sodium Level 140 mmol/L (136-145)
--- NOTE | 2019-11-29 23:34 | ER ---
Nurse's Notes [facility] Name: Marine Mitchell Age: 29 yrs Sex: Female : 1990 Arrival Date: 11/29/2019 Time: 20:26 Bed 4 Private MD: Diagnosis: Abdominal pain. Urinary tract infection Presentation: 11/28 20:45 Chief complaint: Patient states: SHARP PAIN ON THE EPIGASTRIC AREA RADIATING TO MY rv RIGHT BREAST, 11/02. VOMITED ONCE. DENIES DIARRHEA, CONSTIPATION AND FEVER. Coronavirus screen: Proceed with normal triage. Ebola Screen: No symptoms or risks identified at this time. Initial Sepsis Screen: Does the patient meet any 2 criteria? No. Patient's initial sepsis screen is negative. Does the patient have a suspected source of infection? No. Patient's initial sepsis screen is negative. Risk Assessment: Do you want to hurt yourself or someone else? Patient reports no desire to harm self or others. Onset of symptoms was November 29, 2019 at 20:30. 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 - Social history:: Smoking status: Patient reports the use of cigarette tobacco products, denies chronic smoking, but will smoke occasionally. Screenin:23 Abuse screen: Denies threats or abuse. Denies injuries from another. Nutritional mg2 screening: No deficits noted. Tuberculosis screening: No symptoms or risk factors identified. Fall Risk IV access (20 points). Assessment: 21:22 General: Appears in no apparent distress. comfortable, Behavior is calm, cooperative. mg2 Pain: Complains of pain in epigastric area Pain radiates to right shoulder Quality of pain is described as aching, Pain began gradually, Is intermittent. Neuro: Level of Consciousness is awake, alert, obeys commands, Oriented to person, place, time, situation. Cardiovascular: Capillary refill < 3 seconds Patient's skin is warm and dry. Respiratory: Airway is patent Respiratory effort is even, unlabored, Respiratory pattern is regular, symmetrical. GI: Bowel sounds present X 4 quads. Abd is soft Reports epigastric pain, vomiting. : No signs and/or symptoms were reported regarding the genitourinary system. EENT: No signs and/or symptoms were reported regarding the EENT system. Derm: Skin is intact, is healthy with good turgor, Skin is pink, warm \T\ dry. normal. Musculoskeletal: Circulation, motion, and sensation intact. Capillary refill < 3 seconds. 22:18 Reassessment: Patient appears in no apparent distress at this time. Patient and/or mg2 family updated on plan of care and expected duration. Pain level reassessed. Patient is alert, oriented x 3, equal unlabored respirations, skin warm/dry/pink. 23:46 Reassessment: Patient denies pain at this time. Patient states feeling better. Patient mg2 states symptoms have improved. Vital Signs: 20:45 BP 105 / 90; Pulse 64; Resp 16; Temp 98.7; Pulse Ox 100% ; Weight 117.93 kg; Height 5 rv ft. 1 in. (154.94 cm); Pain 6/10; 22:18 BP 127 / 72; Pulse 70; Resp 18; Pulse Ox 100% on R/A; mg2 20:45 Body Mass Index 49.13 (117.93 kg, 154.94 cm) rv ED Course: 20:26 Patient arrived in ED. bp1 20:47 Triage completed. rv 20:48 Arm band placed on Patient placed in the treatment room, on a stretcher, Patient rv notified of wait time. 20:50 Carloz Newell RN is Primary Nurse. mg2 20:51 Neptali Matthew MD is Attending Physician. pkl 21:15 Inserted saline lock: 20 gauge in right antecubital area, using aseptic technique. mg2 Blood collected. 21:24 Patient has correct armband on for positive identification. Pulse ox on. NIBP on. Door mg2 closed. Warm blanket given. 21:24 No provider procedures requiring assistance completed. mg2 22:13 US Abdomen Limited In Process Unspecified. EDMS 22:19 Radiology exam delayed due to test not completed at this time. vm2 22:53 CT Abd/Pelvis - IV Contrast Only In Process Unspecified. EDMS 23:46 IV discontinued, intact, bleeding controlled, No redness/swelling at site. Pressure mg2 dressing applied. Administered Medications: 21:22 Drug: NS 0.9% 1000 ml Route: IV; Rate: 125 ml/hr; Site: left antecubital; mg2 23:45 Follow up: Response: No adverse reaction; IV Status: Order to discontinue infusion; IV mg2 Intake: 250ml 21:22 Drug: morphine 4 mg Route: IVP; Site: left antecubital; mg2 22:18 Follow up: Response: No adverse reaction mg2 21:22 Drug: Zofran (Ondansetron) 4 mg Route: IVP; Site: left antecubital; mg2 22:17 Follow up: Response: No adverse reaction mg2 23:45 Drug: Cipro 500 mg Route: PO; mg2 23:45 Follow up: Response: No adverse reaction; Medication administered at discharge. mg2 Intake: 23:45 IV: 250ml; Total: 250ml. mg2 Outcome: 23:33 Discharge ordered by . dank 23:46 Discharged to home ambulatory. mg2 23:46 Condition: stable 23:46 Discharge instructions given to patient, Instructed on discharge instructions, follow up and referral plans. medication usage, Demonstrated understanding of instructions, follow-up care, medications, Prescriptions given X 2. 23:46 Patient left the ED. mg2 Signatures: Dispatcher [employer] EDMS Neptali Matthew MD MD pkl McGuire, Victoria [facility] Carloz Newell RN RN mg2 Heri Jeff RN RN rv Liyah Gan bp1
--- NOTE | 2019-11-29 23:34 | EDPHYS ---
Physician Documentation [facility] Name: Marine Mitchell Age: 29 yrs Sex: Female : 1990 Arrival Date: 11/29/2019 Time: 20: Bed 4 Private MD: ED Physician Neptali Matthew HPI: 11/28 21:06 This 29 yrs old Female presents to ER via Ambulatory with complaints of pkl Abdominal Pain. 21:06 The patient presents with abdominal pain in the epigastric area. Onset: The pkl symptoms/episode began/occurred just prior to arrival, 1 hour(s) ago. The symptoms radiate to back. Associated signs and symptoms: none. 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 - Social history:: Smoking status: Patient reports the use of cigarette tobacco products, denies chronic smoking, but will smoke occasionally. ROS: 21:06 Eyes: Negative for injury, pain, redness, and discharge, ENT: Negative for injury, pkl pain, and discharge, Neck: Negative for injury, pain, and swelling, Cardiovascular: Negative for chest pain, palpitations, and edema, Respiratory: Negative for shortness of breath, cough, wheezing, and pleuritic chest pain. 21:06 Abdomen/GI: Positive for abdominal pain, of the epigastric area. 21:06 Back: Positive for pain at rest. 21:06 : Negative for urinary symptoms. 21:06 MS/extremity: Negative for acute changes. 21:06 Skin: Negative for rash. 21:06 Neuro: Negative for altered mental status. Exam: 21:06 Head/Face: Normocephalic, atraumatic. Eyes: Pupils equal round and reactive to light, pkl extra-ocular motions intact. Lids and lashes normal. Conjunctiva and sclera are non-icteric and not injected. Cornea within normal limits. Periorbital areas with no swelling, redness, or edema. ENT: Nares patent. No nasal discharge, no septal abnormalities noted. Tympanic membranes are normal and external auditory canals are clear. Oropharynx with no redness, swelling, or masses, exudates, or evidence of obstruction, uvula midline. Mucous membranes moist. Neck: Trachea midline, no thyromegaly or masses palpated, and no cervical lymphadenopathy. Supple, full range of motion without nuchal rigidity, or vertebral point tenderness. No Meningismus. Chest/axilla: Normal chest wall appearance and motion. Nontender with no deformity. No lesions are appreciated. Cardiovascular: Regular rate and rhythm with a normal S1 and S2. No gallops, murmurs, or rubs. Normal PMI, no JVD. No pulse deficits. Respiratory: Lungs have equal breath sounds bilaterally, clear to auscultation and percussion. No rales, rhonchi or wheezes noted. No increased work of breathing, no retractions or nasal flaring. 21:06 Abdomen/GI: Bowel sounds: normal, Palpation: soft, mild abdominal tenderness, in the epigastric area. 21:06 Back: Exam negative for acute changes. 21:06 : Exam negative for acute changes. 21:06 Musculoskeletal/extremity: Exam is negative for acute changes. 21:06 Skin: Exam negative for rash. 21:06 Neuro: Orientation: is normal, Mentation: is normal, Cranial nerves: grossly normal, Motor: is normal. Vital Signs: 20:45 BP 105 / 90; Pulse 64; Resp 16; Temp 98.7; Pulse Ox 100% ; Weight 117.93 kg; Height 5 rv ft. 1 in. (154.94 cm); Pain 6/10; 22:18 BP 127 / 72; Pulse 70; Resp 18; Pulse Ox 100% on R/A; mg2 20:45 Body Mass Index 49.13 (117.93 kg, 154.94 cm) rv MDM: 20:51 Patient medically screened. pkl 23:31 Data reviewed: vital signs, nurses notes, lab test result(s), radiologic studies, CT pkl scan. ED course: Patient feeling better. Discussed lab. and imaging studies with patient. Advised to follow up with PCP in 2 to 3 days. Patient understood instructions. 11/28 20:52 Order name: Basic Metabolic Panel; Complete Time: 22:14 mg2 11/28 20:52 Order name: CBC with Diff; Complete Time: 22:14 mg2 11/28 20:52 Order name: Hepatic Function; Complete Time: 22:14 mg2 11/28 20:52 Order name: Lipase; Complete Time: 22:14 mg2 11/28 22:31 Order name: Urine Microscopic Only; Complete Time: 23:40 mg2 11/28 23:44 Order name: Urine Culture EDGA 11/28 20:52 Order name: IV Saline Lock; Complete Time: 21:01 mg2 11/28 20:52 Order name: Labs collected and sent; Complete Time: 21:01 mg2 11/28 21:05 Order name: US Abdomen Limited pkl 11/28 22:16 Order name: CT Abd/Pelvis - IV Contrast Only pkl Administered Medications: 21:22 Drug: NS 0.9% 1000 ml Route: IV; Rate: 125 ml/hr; Site: left antecubital; mg2 23:45 Follow up: Response: No adverse reaction; IV Status: Order to discontinue infusion; IV mg2 Intake: 250ml 21:22 Drug: morphine 4 mg Route: IVP; Site: left antecubital; mg2 22:18 Follow up: Response: No adverse reaction mg2 21:22 Drug: Zofran (Ondansetron) 4 mg Route: IVP; Site: left antecubital; mg2 22:17 Follow up: Response: No adverse reaction mg2 23:45 Drug: Cipro 500 mg Route: PO; mg2 23:45 Follow up: Response: No adverse reaction; Medication administered at discharge. mg2 Disposition: 11/29/19 23:33 Discharged to Home. Impression: Abdominal pain. Urinary tract infection. - Condition is Stable. - Prescriptions for Ultram 50 mg Oral Tablet - take 1 tablet by ORAL route every 8 hours As needed; 12 tablet. Cipro 500 mg Oral Tablet - take 1 tablet by ORAL route every 12 hours for 7 days; 14 tablet. - Medication Reconciliation Form, Thank You Letter, Antibiotic Education, Prescription Opioid Use form. - Follow up: Private Physician; When: 2 - 3 days; Reason: Re-evaluation by your physician. - Problem is new. - Symptoms have improved. Signatures: Dispatcher [employer] Brown Schroeder RN RN sg Lam, Pin, MD MD pkl Carloz Newell RN RN mg2 Heri Jeff RN RN rv Corrections: (The following items were deleted from the chart) 23:41 23:33 11/29/2019 23:33 Discharged to Home. Impression: Abdominal pain. Condition is pkl Stable. Forms are Medication Reconciliation Form, Thank You Letter, Antibiotic Education, Prescription Opioid Use. Follow up: Private Physician; When: 2 - 3 days; Reason: Re-evaluation by your physician. Problem is new. Symptoms have improved. pkl 23:46 23:41 11/29/2019 23:33 Discharged to Home. Impression: Abdominal pain. Urinary tract mg2 infection. Condition is Stable. Prescriptions for Ultram 50 mg Oral Tablet - take 1 tablet by ORAL route every 8 hours As needed; 12 tablet. and Forms are Medication Reconciliation Form, Thank You Letter, Antibiotic Education, Prescription Opioid Use. Follow up: Private Physician; When: 2 - 3 days; Reason: Re-evaluation by your physician. Problem is new. Symptoms have improved. pkl
[2019-11-29 23:37] LABS: Urine Culture Reflex Order REFLEXED; Urine RBC 20-50 /HPF (NONE SEEN)
[2019-11-29 23:38] LABS: Urine Bacteria 20-50 /HPF (<20)
[2019-11-29] MEDS ORDERED: CIPROFLOXACIN HCL 500 MG TAB ONE (23:50)
[2019-11-29 23:55] VITALS: TEMP 98.7; O2SAT 100
[2019-11-29 23:56] VITALS: BP 127/72
--- NOTE | 2019-11-30 06:49 | RAD REPORT ---
EXAM DESCRIPTION: US - Abdomen Exam Limited - 11/29/2019 10:12 pm CLINICAL HISTORY: ABD PAIN COMPARISON: Abdomen Pelvis W Contrast dated 08/29/2017; Abdomen Pelvis W Contrast dated 11/29/2019 FINDINGS: No gallstones, sludge or other abnormalities within the gallbladder lumen. There is no wal l thickening or pericholecystic fluid. No common duct stone or biliary tree dilatation identified. Partially imaged liver shows fatty infiltration. IMPRESSION: Normal gallbladder and biliary tree ultrasound. Partially imaged liver shows fatty infiltration.
--- NOTE | 2019-11-30 12:27 | RAD REPORT ---
EXAM DESCRIPTION: CT - Abdomen Pelvis W Contrast - 11/30/2019 3:50 am CLINICAL HISTORY: The patient is 29 years old and is Female; ABD PAIN TECHNIQUE: Axial computed tomography images of the abdomen and pelvis with intravenous contrast. S agittal and coronal reformatted images were created and reviewed. This CT exam was performed using one or more of the following dose reduction techniques: automated exposure control, adjustment of t he mA and/or kV according to patient size, and/or use of iterative reconstruction technique. Delayed imaging was performed. DLP: 2179 mGy*cm COMPARISON: CT abdomen and pelvis dated August 29, 2017. FINDINGS: LUNG BASES: Lung bases are clear. ABDOMEN: LIVER: Diffuse hepatic steatosis. Visualized liver is normal. GALLBLADDER AND BILE DUCTS: Unremarkable. No calcified stones. No ductal dilation. PANCREAS: Unremarkable. No mass. No ductal dilation. SPLEEN: Multiple splenic granulomas. ADRENALS: Unremarkable. No mass. KIDNEYS AND URETERS: Unchanged absent of the right kidney. No hydronephrosis. STOMACH AND BOWEL: Unremarkable. No obstruction. No mucosal thickening. PELVIS: APPENDIX: The appendix is seen and is within normal limits. BLADDER: Bladder is decompressed. REPRODUCTIVE: Unremarkable as visualized. ABDOMEN and PELVIS: INTRAPERITONEAL SPACE: Unremarkable. No free air. No significant fluid collection. BONES/JOINTS: No acute fracture. No dislocation. SOFT TISSUES: Unremarkable. VASCULATURE: Unremarkable. No abdominal aortic aneurysm. LYMPH NODES: Unremarkable. No enlarged lymph nodes. IMPRESSION: 1. No acute abdominal or pelvic abnormality. 2. Diffuse hepatic steatosis. 3. Prior granulomatous disease. Electronically signed by: Ollie Walters DO 11/29/2019 11:07 PM CDT Due to temporary technical issues with the PACS/Fluency reporting system, reports are being signed by the in house radiologist without review as a courtesy to ensure prompt reporting. The interpreting r adiologist is fully responsible for the content of the report.
== END 2019-11-29 23:46 | disposition home or self-care (01) ==
LOC: ER 20:23
DX: N39.0 Urinary tract infection, site not specified (principal); Z72.0 Tobacco use
CPT/HCPCS: 36415; 74177; 76705; 80048; 80076; 81015; 83690; 85025; 87086; 87088; 96361; 96374; 96375; 99284; J2405; J7030; Q9967

== ENCOUNTER 2020-07-04 16:08 | Emergency (ER) | payer OTHER, SELFPAY ==
[2020-07-04 18:55] LABS: Urine Blood 1+ (NEG); Urine Glucose NEGATIVE (NEG); Urine Protein 1+ (NEG); Urine Specific Gravity 1.025 (1.005-1.030); Urine pH 6.5 (5.0-7.0)
[2020-07-04 20:06] LABS: Urine Bacteria >50 /HPF (<20); Urine Trichomonas PRESENT (NONE SEEN)
--- NOTE | 2020-07-04 20:31 | ER ---
Nurse's Notes [facility] Name: Marine Mitchell Age: 30 yrs Sex: Female : 1990 Arrival Date: 07/04/2020 Time: 16:10 Bed 4 Private MD: Diagnosis: state Presentation: 07/04 16:45 Chief complaint: Patient states: Slight abd pain since this weekend. Missed her period ll1 in May. Took 2 positive tests today. + morning sickness. No cough/fever. Coronavirus screen: Client denies travel out of the [place] in the last 14 days. At this time, the client does not indicate any symptoms associated with coronavirus-19. Ebola Screen: Patient denies travel to an Ebola-affected area in the 21 days before illness onset. Initial Sepsis Screen: Does the patient meet any 2 criteria? No. Patient's initial sepsis screen is negative. Does the patient have a suspected source of infection? Yes: Acute abdominal pain. Risk Assessment: Do you want to hurt yourself or someone else? Patient reports no desire to harm self or others. Onset of symptoms was July 02, 2020. 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 - Social history:: Smoking status: Patient/guardian denies using tobacco, Stopped _ months ago .1. Screenin:33 Abuse screen: Denies threats or abuse. Nutritional screening: No deficits noted. ea Tuberculosis screening: No symptoms or risk factors identified. Fall Risk None identified. Assessment: 20:15 General: Appears in no apparent distress. Behavior is calm, cooperative. Pain: Denies ea pain. Neuro: Level of Consciousness is awake, alert, obeys commands, Oriented to person, place, time. Cardiovascular: Patient's skin is warm and dry. Respiratory: Airway is patent Respiratory effort is even, unlabored, Respiratory pattern is regular, symmetrical. Derm: Skin is pink, warm \T\ dry. 20:40 Reassessment: Patient and/or family updated on plan of care and expected duration. Pain ea level reassessed. Patient is alert, oriented x 3, equal unlabored respirations, skin warm/dry/pink. Discharge instruction given to patient verbalized the understanding of instruction. Pt left ED ambulatory tolerating well. Vital Signs: 16:45 BP 128 / 68; Pulse 82; Resp 17; Temp 97.7; Pulse Ox 99% ; Height 5 ft. 1 in. (154.94 ll1 cm); Pain 0/10; ED Course: 16:10 Patient arrived in ED. as 16:48 Triage completed. ll1 16:49 Arm band placed on. ll1 19:34 Bruno White PA is PHCP. cp 19:34 Candice Pena MD is Attending Physician. cp 20:33 Emely Koo, ARTEM is Primary Nurse. ea 20:33 Patient has correct armband on for positive identification. Bed in low position. Call ea light in reach. Side rails up X2. 20:34 No provider procedures requiring assistance completed. Patient did not have IV access ea during this emergency room visit. Administered Medications: No medications were administered Outcome: 20:30 Discharge ordered by MD. cp 20:40 Discharged to home ambulatory, with family. ea 20:40 Condition: stable 20:40 Discharge instructions given to patient, Instructed on discharge instructions, follow up and referral plans. medication usage, Demonstrated understanding of instructions, follow-up care, medications, Prescriptions given X 1. 20:41 Patient left the ED. ea Signatures: Marilyn Ignacio as Bruno White PA PA cp Emely Koo, RN RN Donato Macario RN RN ll1
--- NOTE | 2020-07-04 20:31 | EDPHYS ---
Physician Documentation [facility] Name: Marine Mitchell Age: 30 yrs Sex: Female : 1990 Arrival Date: 07/04/2020 Time: 16:10 Bed 4 Private MD: ED Physician Candice Pena HPI: 07/04 20:21 This 30 yrs old Female presents to ER via Ambulatory with complaints of cp Possible . 20:22 Patient reports not having menstrual cycle last month. Had two positive home cp test, but work is requiring paperwork that confirms positive . Patient concerned about having to lift heavy items at work. Patient denies any abdominal pain, denies any vaginal bleeding, denies any urinary symptoms. 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 - Social history:: Smoking status: Patient/guardian denies using tobacco, Stopped _ months ago .1. ROS: 20:27 Eyes: Negative for injury, pain, redness, and discharge. cp 20:27 Constitutional: Negative for body aches, chills, poor PO intake. 20:27 ENT: Negative for ear pain, sore throat, difficulty swallowing, difficulty handling secretions. 20:27 Cardiovascular: Negative for chest pain. 20:27 Respiratory: Negative for cough, shortness of breath, wheezing. 20:27 Abdomen/GI: Negative for abdominal pain, nausea, vomiting, and diarrhea, constipation, abdominal cramps. 20:27 : Negative for urinary symptoms, flank pain, vaginal bleeding, vaginal discharge. 20:27 Neuro: Negative for altered mental status, headache, weakness. 20:27 All other systems are negative. Exam: 20:27 Head/Face: Normocephalic, atraumatic. cp 20:27 Constitutional: The patient appears in no acute distress, alert, awake, non-toxic, well developed, well nourished, obese. 20:27 Eyes: Periorbital structures: appear normal, Conjunctiva: normal, no exudate, no injection, Sclera: no appreciated abnormality, Lids and lashes: appear normal, bilaterally. 20:27 ENT: External ear(s): are unremarkable, Nose: is normal, Posterior pharynx: Airway: no evidence of obstruction, patent. 20:27 Chest/axilla: Inspection: normal, Palpation: is normal, no crepitus, no tenderness. 20:27 Cardiovascular: Rate: normal. 20:27 Respiratory: the patient does not display signs of respiratory distress, Respirations: normal, no use of accessory muscles, no retractions, labored breathing, is not present, Breath sounds: are clear throughout, no decreased breath sounds. 20:27 Abdomen/GI: Inspection: abdomen appears normal, Palpation: abdomen is soft and non-tender, in all quadrants. 20:27 Back: pain, is absent, ROM is normal. Vital Signs: 16:45 BP 128 / 68; Pulse 82; Resp 17; Temp 97.7; Pulse Ox 99% ; Height 5 ft. 1 in. (154.94 ll1 cm); Pain 0/10; MDM: 20:17 Patient medically screened. cp 20:25 Differential diagnosis: STD, ectopic , threatened miscarriage. cp 20:30 Data reviewed: vital signs, nurses notes, lab test result(s), and as a result, I will cp discharge patient. 20:30 Counseling: I had a detailed discussion with the patient and/or guardian regarding: the cp historical points, exam findings, and any diagnostic results supporting the discharge/admit diagnosis, lab results, the need for outpatient follow up, an OB/Gyne specialist, to return to the emergency department if symptoms worsen or persist or if there are any questions or concerns that arise at home. 07/04 18:39 Order name: Urine Dipstick--Ancillary (enter results); Complete Time: 19:33 hb 07/04 18:39 Order name: Urine --Ancillary (enter results); Complete Time: 19:33 hb 07/04 19:33 Order name: Urine Microscopic Only cp 07/04 20:07 Order name: Urine Culture EDMS Administered Medications: No medications were administered Disposition: 07/05 06:59 Co-signature as Attending Physician, Candice Pena MD. ma2 Disposition: 07/04/20 20:30 Discharged to Home. Impression: state. - Condition is Stable. - Discharge Instructions: First Trimester of . - Prescriptions for Vitamin 27- 0.8 mg Oral Tablet - take 1 tablet by ORAL route once daily; 60 tablet. - Medication Reconciliation Form, Thank You Letter, Antibiotic Education, Prescription Opioid Use, Work release form form. - Follow up: Private Physician; When: 1 week; Reason: Recheck today's complaints. - Problem is new. - Symptoms have improved. 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 Impression: state. Condition is ea Stable. Forms are Medication Reconciliation Form, Thank You Letter, Antibiotic Education, Prescription Opioid Use. Follow up: Private Physician; When: 1 week; Reason: Recheck today's complaints. Problem is new. Symptoms have improved. cp 07/05 15:33 07/04 20:00 Differential diagnosis: STD, ectopic , threatened miscarriage cp cp
[2020-07-04 21:00] VITALS: BP 128/68; TEMP 97.7; O2SAT 99
--- OUTSIDE RECORDS SUMMARY | 2020-07-05 11:57 | XMS REPORT | Clinical Summary ---
:1990 Author Organization [facility] Address [address] [place] [address] Care Team Providers Name Role Phone Asked, Pcp Primary Care Provider Unavailable Allergies No Known Active Allergies Medications Medication Sig Dispensed Refills Start End Date Status Date carBAMazepine XR Take by mouth 2 0 0 Discontinued (TEGretol XR) 100 (two) times a 20 (Stop Taking at MG 12 hr tablet day. Disc harge) gabapentin Take 1 capsule 90 capsule 0 12/04/19 Exp ired (NEURONTIN) 300 mg (300 mg total) 0 20 capsuleIndications by mouth 3 : neuropathic pain (three) times a day for 30 days .neuropathic pain. hydrOXYzine Take 1 tablet 30 tablet 0 12/04/19 Expi red (ATARAX) 25 MG (25 mg total) 0 20 tabletIndications: by mouth 3 anxiety (three) times a day as needed for anxiety for up to 30 days .anxious. sertraline Take 1 tablet 30 tablet 0 12/04/19 Expir ed (ZOLOFT) 50 MG (50 mg total) 0 20 tabletIndications: by mouth daily anxiety with for 30 days depression .anxiousness associated with depression. traZODone Take 1 tablet 30 tablet 0 12/04/19 d (DESYREL) 50 MG (50 mg total) 0 20 tabletIndications: by mouth insomnia nightly for 30 associated with days .insomnia depression associated with depression. Active Problems Problem Noted Date Major depression 10/29/2019 Encounters Date Type Specialty Care Team Description 10/31/2019 Documentation Medical Records Provider, Unknown 10/29/2019 - Hospital Encounter Psychiatry Liza Finn, 11/04/2019 Seth Hawkins MD Kazimi, Iram Fatima, MD after 07/04/2019 Medical History Medical History Date Comments Seizures (HCC) Depression Family History Medical History Relation Name Comments [...] Assigned at Date Recorded Not on file Last Filed Vital Signs Vital Sign Reading [...] are i n the results section. after 07/04/2019 Results Syphilis total antibody (10/29/2019 4:10 PM CDT) Pathologist [facility] Syphilis total Non-reactiveComment Non-reactive [facility] antibody : No serological HOSPITAL evidence of syphilis infection. Specimen Blood Performing Organization Address City/[facility]/ZIP [facility] Phon e Number [facility] DEPARTMENT OF PATHOLOGY AND [address] [place] [address] [phone] [phone] hCG qualitative, serum screen (10/29/2019 4:10 PM CDT) [facility] hCG qualitative, NegativeComment: [facility] serum Sensitivity of HCG HOSPITAL test: 25 mIU/mL Specimen Blood Performing Organization Address City/[facility] Phon e Number [facility] DEPARTMENT OF PATHOLOGY AND [address] [place] [address] [phone] [address] Hemoglobin A1c (10/29/2019 4:10 PM CDT) [facility] Hemoglobin A1C 5.9 (H) 4.0 - 5.6 % [facility] Comment: HOSPITAL HbA1c cutoffs for diagnosing diabetes: [...] 1 diabetes. Specimen Blood Performing Organization Address City/State/[facility] Phon e Number [facility] DEPARTMENT OF PATHOLOGY AND [address] [place] [address] [phone] [address] Lipid panel (10/29/2019 4:10 PM CDT) Pathologist [facility] Cholesterol 127 <200 mg/dL [facility] Triglycerides 103 <150 mg/dL [facility] HDL cholesterol 42 >40 mg/dL [facility] LDL cholesterol 75Comment: Result <100 mg/dL [place] obtained by direct [facility] LDL measurement [facility] Lipid panel [facility] interpretation Comment: [facility] Total Cholesterol (mg/dL) HOSPIT AL <200 Desirable [...] (>=200 mg/dL) Specimen Blood Performing Organization Address City/[facility] Phon e Number [facility] DEPARTMENT OF PATHOLOGY AND [address] [place] [address] [phone] [address] HIV Ag/Ab combination (10/29/2019 4:00 AM CDT) HIV Ag/Ab combination Non-reactive Non-reactive [facility] Specimen Blood Performing Organization Address City/State/[facility] Phon e Number 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
--- OUTSIDE RECORDS SUMMARY | 2020-07-05 11:57 | XMS REPORT | Continuity of Care Document ---
:1990 Author Organization [facility] t Address [address] [place] [address] [address] [place] [address] Care Team Providers Name Role Phone Asked, Pcp Primary Care Physician Unavailable Chino Finn MD. Attending Clinician Joel MORENO, N. Attending Clinician Jack Schuster MD Attending Clinician Provider Attending Clinician Unavailable Ness Clark Attending Clinician DEJA Admitting Clinician Unavailable Problems Condition Condition Condition Status Onset Resolution Last Treating Co mments Source Name Details Category Date Date Treatment Clinician Date Major Major Disease Active [place] depression depression 6-05 Nd thodi 00:00: st 00 Allergies, Adverse Reactions, Alerts This patient has no known allergies or adverse reactions. Family History Family Member Diagnosis Comments Start Date Stop Date Source Maternal uncle No Known Problems [place] Episc[employer]alian Natural mother No Known Problems [place] Episc[employer]alian Other No Known Problems [place] [employer] Paternal aunt No Known Problems [place] [employer] Paternal grandfather No Known Problems [place] [employer] Paternal grandmother No Known Problems [place] [employer] Paternal uncle No Known Problems [place] Episc[employer] Natural sister No Known Problems [place] Episc[employer]alian Natural brother No Known Problems [place] Episc[employer]alian Cousin No Known Problems [place] [employer] Natural father Suicide Attempts [place] [employer] Maternal aunt No Known Problems [place] [employer] Maternal grandfather No Known Problems [place] [employer]isc[employer] Maternal grandmother No Known Problems [place] [employer] Social History Social Habit Start Date Stop Date Quantity Comments Source History [facility] Meth odist Alcohol Std Drinks History [facility] Meth odist Alcohol Binge Sex Assigned At [facility] ethodist Tobacco use and 2019-10-29 2019-10-29 Never used [facility] ethodist exposure 00:00:00 00:00:00 Alcohol intake 2019-10-29 2019-10-29 Lifetime [facility] thodist 00:00:00 00:00:00 non-drinker (finding) History SDAZ 2019-10-29 2019-10-29 1 [place] Meth odist Alcohol Frequency 00:00:00 00:00:00 Smoking Status Start Date Stop Date Source Never smoker [place] Stacyis t Medications Ordered Filled Start Stop Current Ordering Indication Dosage Frequency Signature Comments Components Source Medication Medication Date Date Medication? Clinician (SIG) Name Name carBAMazepi No Q.5D Take by Ion batres ne XR 11-03 mouth 2 [facility] (TEGretol 15:01: 00:00 (two) st XR) 100 MG 51 :00 times a 12 hr day. tablet gabapentin neuropathic 300mg [id number] Take 1 [place] (NEURONTIN) 11-03 pain [id number] capsule [facility] 300 mg 00:00: 23:59 3D ([address] capsule 00 :00 total) by mouth 3 (three) times a day for 30 days .neuropath ic pain. hydrOXYzine No anxiety 25mg Q.18533623 Take 1 [place] (ATARAX) 25 11-03 [id number] tablet (25 [facility] MG tablet 00:00: 23:59 3D mg total) st 00 :00 by mouth 3 (three) times a day as needed for anxiety for up to 30 days .anxious. sertraline anxiety 50mg QD Take 1 H ounoreen (ZOLOFT) 50 11-03 with tablet (50 M [facility] MG tablet 00:00: 23:59 depression mg total) st 00 :00 by mouth daily for 30 days .anxiousne ss associated with depression . traZODone 2019- No insomnia 50mg QD Take 1 [place] (DESYREL) 11-03 associated tablet (50 [facility] 50 MG 00:00: 23:59 with mg total) st tablet 00 :00 depression by mouth nightly for 30 days .insomnia associated with depression . Vital Signs Vital Name Observation Time Observation Value Comments Source Systolic blood 2019-11-04 05:55:52 122 mm[Hg] [place] [facility] pressure Diastolic blood 2019-11-04 05:55:52 63 mm[Hg] [place] [employer] pressure Heart rate 2019-11-04 05:55:52 78 /min Mitchel Frye Body temperature 2019-11-04 05:55:52 36.44 Lala [place] [employer] Respiratory rate 2019-11-04 05:55:52 16 /min [place] [employer] Oxygen saturation in 2019-11-04 05:55:52 95 /min Mitchel Frye Arterial blood by Pulse oximetry Body height 2019-10-29 01:56:00 154.9 cm Mitchel Frye Body weight 2019-10-29 01:56:00 118.389 kg Mitchel Frye BMI 2019-10-29 01:56:00 49.32 kg/m2 Mitchel Frye Procedures Procedure Date / Time Performed Performing Clinician Sourc e HEMOGLOBIN A1C 2019-10-29 16:10:00 Pedrito Donato LIPID PANEL 2019-10-29 16:10:00 Pedrito Donato SYPHILIS TOTAL ANTIBODY 2019-10-29 16:10:00 Pedrito Donato HCG QUALITATIVE, SERUM 2019-10-29 16:10:00 Pedrito Donato SCREEN HIV AG/AB COMBINATION 2019-10-29 04:00:00 Pedrito Dontao Encounters Start End Encounter Admission Attending Care Care Encounter Source Date/Time Date/Time Type Type Clinicians Facility Department ID 2019-10-29 2019-11-04 Inpatient KATYA [facility] 023 [id number] [place] 00:00:00 00:00:00 MAT[address]AS [address] 2019-09-21 2019-09-21 Initial [place], [facility] [id number] 09:44:11 10:03:10 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 More or less stringent targets may be appropriate for individual shannan ents. <7.5% Target for Children an d adolescents with type 1 diabetes . Lab Interpretation (test code = Abnormal 47347-2) Mitchel Butterfieldyphilis total [id number] 18:19:38 Test Item Value Reference Range Interpretation Comments Syphilis total Non-reactive Non-reactive No serologica l antibody (test code evidence of syphilis = 6194) infection. Mitchel MethodistLipid [id number] 17:47:31 Test Item Value Reference Interpretation Comments Range Cholesterol (test 127 mg/dL <200 code = 2093-3) Triglycerides (test 103 mg/dL <150 code = 2571-8) HDL cholesterol 42 mg/dL >40 (test code = 2085-9) LDL cholesterol 75 mg/dL <100 Result obtai faizan by direct (test code = 2089-1) LDL [place] surement Lipid panel SeeBelow Total Cholester ol (mg/dL) interpretation (test < 200 code = 65331-9) Desirable 200-239 Borderline -high >=240 Hi gh [...] ( >=200 mg/dL) Mitchel FryehCG qualitative, serum [id number] 16:58:18 Test Item Value Reference Range Interpretation Comments hCG qualitative, Negative Sensitivity of HCG test: serum (test code = 25 mIU/mL 2118-8) Mitchel FryeHIV Ag/Ab [id number] 08:18:50 Test Item Value Reference Range Interpretation Comments HIV Ag/Ab combination (test code Non-reactive Non-reactive = 5299) Mitchel Frye
== END 2020-07-04 20:41 | disposition home or self-care (01) ==
LOC: ER 16:08
DX: Z33.1 Pregnant state, incidental (principal)
CPT/HCPCS: 81003; 81015; 81025; 87086; 87088; 99282